=== PATIENT | female | born 1975 | race Caucasian/White ===

== ENCOUNTER 2020-08-23 11:16 | Outpatient (REF) | payer OTHER, SELFPAY ==
[2020-08-23 14:01] LABS: MANUAL DIFF FLAG NO
[2020-08-23 14:22] LABS: Basophils Absolute Auto 0.1 X10*3/uL (0.0-0.2); Basophils Percent Auto 0.9 % (0-2); Eosinophils Absolute Auto 0.2 X10*3/uL (0.0-0.4); Eosinophils Percent Auto 3.6 % (0-4); Hematocrit 40.5 % (37-47); Hemoglobin 13.5 g/dl (12.0-16.0); Imm Gran Abs Auto 0.01 X10*3/uL (0.00-0.03); Imm Gran Pct Auto 0.2 % (0.0-0.4); Lymphocytes Absolute Auto 3.1 X10*3/uL (1.2-4.9); Lymphocytes Percent Auto 49.3 % (20-40); Mean Corpuscular HGB Conc 33.3 g/dl (31.0-35.0); Mean Platelet Volume 9.4 fL (9.4-12.3); Monocytes Absolute Auto 0.4 X10*3/uL (0.1-1.2); Monocytes Percent Auto 6.8 % (2-11); Neutrophils Absolute Auto 2.5 X10*3/uL (2.0-8.3); Neutrophils Percent Auto 39.2 % (45-73); Platelet Count 280 X10*3/uL (160-400); Red Cell Distribution Width 13.2 % (11.0-16.0); White Blood Count 6.3 X10*3/uL (4.8-10.8)
[2020-08-23 16:11] LABS: Alanine Aminotransferase 11 U/L (0-31); Albumin Level 4.5 g/dL (3.5-5.0); Alkaline Phosphatase 76 U/L (39-117); Anion Gap 12 (12-20); Aspartate Amino Transferase 19 U/L (5-31); Bilirubin Total 0.4 mg/dL (0.0-1.0); Blood Urea Nitrogen 10 mg/dL (9-16); Carbon Dioxide 28 mmol/L (22-29); Chloride 103 mmol/L (96-108); Cholesterol 177 mg/dL; Estimated Glomerular Filt Rate > 60; Glucose Fasting 84 mg/dL (60-99); HDL Cholesterol 62 mg/dL; Iron 112 mcg/dL (30-160); LDL Cholesterol Calculated 105 mg/dl; Percent Iron Saturation 49 % (15-50); Potassium 4.3 mmol/L (3.3-5.1); Sodium 139 mmol/L (135-145); Total Iron Binding Capacity 227 mcg/dL (228-428); Total Protein 7.2 g/dL (6.5-8.0); Triglycerides 50 mg/dL; Unsaturated Iron Binding 115 ug/dL
[2020-08-23 16:33] LABS: Ferritin 85 ng/mL (10-250); Thyroid Stimulating Hormone 0.64 uIU/mL (0.32-4.0); Vitamin D 25-OH Total 38.9 ng/mL (>30)
== END 2020-08-23 11:17 | disposition home or self-care (01) ==
LOC: HO.MANLDS 11:16
PROVIDERS: PCP Internal Medicine; Visit Provider Internal Medicine
DX: Z00.00 Encounter for general adult medical examination without abnormal findings (principal)
CPT/HCPCS: 36415; 80053; 80061; 82306; 82728; 83540; 84443; 85025

== ENCOUNTER 2022-01-30 10:00 | Outpatient (RCR) | payer OTHER, SELFPAY ==
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
--- NOTE | 2021-11-21 11:10 | PM.PSYDC ---
DS: Providers Provider Primary care physician: Angel Hernandez MD DS: Diagnosis Discharge Diagnosis (1) Chronic post-traumatic stress disorder (PTSD): Status: Acute (2) Generalized anxiety disorder: Status: Acute (3) Major depressive disorder, recurrent severe without psychotic features: Status: Acute DS: Summary Time Spent with Patient Time attestation: Total time spent providing and/or coordinating discharge services: Discharge Plan Discharge Attending provider: En Choi Primary Care Provider: Angel Hernandez Referrals: Angel Hernandez MD [Primary Care Provider] - 1 Week
--- NOTE | 2022-01-07 21:56 | HO.TMSDAILY2 ---
TMS Daily Progress Note Daily TMS Progress Note Date of Service: 01/03/22 Week #: 1 Treatment #(07-29): 1 PHQ-9 Pre-Treatment (07-26): 20 PHQ-9 Most Recent (07-26): 20 Reviewed: TMS Mapping/Re-mapping completed Verification: I have reviewed the TMS Blueprint Trimmer Note and agree with the contents. The patient remains a candidate to continue TMS treatment per protocol. Assessment and Plan (1) Major depressive disorder, recurrent severe without psychotic features: Status: Acute (2) Generalized anxiety disorder: Status: Acute (3) Chronic post-traumatic stress disorder (PTSD): Status: Acute Plan mapping completed in spite of klonapin 2 tid
--- NOTE | 2022-01-07 21:59 | HO.TMSDAILY2 ---
TMS Daily Progress Note Daily TMS Progress Note Date of Service: 01/04/22 Week #: 1 Treatment #(07-29): 1 PHQ-9 Pre-Treatment (07-26): 20 PHQ-9 Most Recent (07-26): 20 Reviewed: TMS Tech Note Reviewed Verification: I have reviewed the TMS Behavioral Sciences Department Chair Note and agree with the contents. The patient remains a candidate to continue TMS treatment per protocol.
--- NOTE | 2022-01-07 22:01 | HO.TMSDAILY2 ---
TMS Daily Progress Note Daily TMS Progress Note Date of Service: 01/07/22 Week #: 1 Treatment #(07-29): 3 PHQ-9 Pre-Treatment (07-26): 20 PHQ-9 Most Recent (07-26): 20 Reviewed: TMS Tech Note Reviewed Verification: I have reviewed the TMS Communications Department Chairperson Note and agree with the contents. The patient remains a candidate to continue TMS treatment per protocol. Assessment and Plan (1) Major depressive disorder, recurrent severe without psychotic features: Status: Acute (2) Generalized anxiety disorder: Status: Acute (3) Chronic post-traumatic stress disorder (PTSD): Status: Acute Plan significant anxiety depressive sx denies active si
--- NOTE | 2022-01-08 21:42 | P.PNPS_ITS ---
TMS Daily Progress Note Daily TMS Progress Note Date of Service: 01/08/22 Week #: 1 Treatment #(07-29): 4 PHQ-9 Pre-Treatment (07-26): 20 PHQ-9 Most Recent (07-26): 20 Reviewed: TMS Tech Note Reviewed Verification: I have reviewed the TMS General Operations Manager Note and agree with the contents. The patient remains a candidate to continue TMS treatment per protocol.
--- NOTE | 2022-01-09 08:21 | HO.TMSDAILY2 ---
TMS Daily Progress Note Daily TMS Progress Note Date of Service: 01/09/22 Week #: 1 Treatment #(07-29): 5 PHQ-9 Pre-Treatment (07-26): 20 PHQ-9 Most Recent (07-26): 20 Reviewed: TMS Tech Note Reviewed Verification: I have reviewed the TMS Family Services Worker Note and agree with the contents. The patient remains a candidate to continue TMS treatment per protocol.
--- NOTE | 2022-01-10 22:52 | P.PNPS_ITS ---
TMS Daily Progress Note Daily TMS Progress Note Date of Service: 01/10/22 Week #: 2 Treatment #(07-29): 6 PHQ-9 Pre-Treatment (07-26): 20 PHQ-9 Most Recent (07-26): 20 Reviewed: TMS Tech Note Reviewed Verification: I have reviewed the TMS Sheet Manufacturing Supervisor Note and agree with the contents. The patient remains a candidate to continue TMS treatment per protocol.
--- NOTE | 2022-01-11 18:53 | P.PNPS_ITS ---
TMS Daily Progress Note Daily TMS Progress Note Date of Service: 01/11/22 Week #: 2 Treatment #(07-29): 7 PHQ-9 Pre-Treatment (07-26): 20 PHQ-9 Most Recent (07-26): 20 Reviewed: TMS Tech Note Reviewed Verification: I have reviewed the TMS Logistics Center Manager Note and agree with the contents. The patient remains a candidate to continue TMS treatment per protocol. Assessment and Plan (1) Major depressive disorder, recurrent severe without psychotic features: Status: Acute (2) Generalized anxiety disorder: Status: Acute (3) Chronic post-traumatic stress disorder (PTSD): Status: Acute Plan significant anxiety depressive sx denies active si monitor patient's response to treatment recently was involved and a Section 35 for family member this did cause significant anxiety
--- NOTE | 2022-01-14 21:51 | HO.TMSDAILY2 ---
TMS Daily Progress Note Daily TMS Progress Note Date of Service: 01/14/22 Week #: 2 Treatment #(07-29): 8 PHQ-9 Pre-Treatment (07-26): 20 PHQ-9 Most Recent (07-26): 20 Reviewed: TMS Tech Note Reviewed Verification: I have reviewed the TMS Rotary Slicing Machine Operator Note and agree with the contents. The patient remains a candidate to continue TMS treatment per protocol. Assessment and Plan (1) Major depressive disorder, recurrent severe without psychotic features: Status: Acute (2) Generalized anxiety disorder: Status: Acute (3) Chronic post-traumatic stress disorder (PTSD): Status: Acute Plan Continue treatment plan
--- NOTE | 2022-01-15 23:07 | HO.TMSDAILY2 ---
TMS Daily Progress Note Daily TMS Progress Note Date of Service: 01/15/22 Week #: 2 Treatment #(07-29): 9 PHQ-9 Pre-Treatment (07-26): 20 PHQ-9 Most Recent (07-26): 20 Reviewed: TMS Tech Note Reviewed Verification: I have reviewed the TMS Assistant Passenger Locomotive Engineer Note and agree with the contents. The patient remains a candidate to continue TMS treatment per protocol.
--- NOTE | 2022-01-16 22:22 | P.PNPS_ITS ---
TMS Daily Progress Note Daily TMS Progress Note Date of Service: 01/16/22 Week #: 2 Treatment #(07-29): 10 PHQ-9 Pre-Treatment (07-26): 20 PHQ-9 Most Recent (07-26): 20 Reviewed: TMS Tech Note Reviewed Verification: I have reviewed the TMS Spout Liner Helper Note and agree with the contents. The patient remains a candidate to continue TMS treatment per protocol.
--- NOTE | 2022-01-17 22:31 | HO.TMSDAILY2 ---
TMS Daily Progress Note Daily TMS Progress Note Date of Service: 01/17/22 Week #: 3 Treatment #(07-29): 11 PHQ-9 Pre-Treatment (07-26): 20 PHQ-9 Most Recent (07-26): 20 Reviewed: TMS Tech Note Reviewed Verification: I have reviewed the TMS Sales And Marketing Coordinator Note and agree with the contents. The patient remains a candidate to continue TMS treatment per protocol.
--- NOTE | 2022-01-18 21:38 | P.PNPS_ITS ---
TMS Daily Progress Note Daily TMS Progress Note Date of Service: 01/18/22 Week #: 3 Treatment #(07-29): 12 PHQ-9 Pre-Treatment (07-26): 20 PHQ-9 Most Recent (07-26): 20 Reviewed: TMS Tech Note Reviewed Verification: I have reviewed the TMS Hotel Services Sales Representative Note and agree with the contents. The patient remains a candidate to continue TMS treatment per protocol.
--- NOTE | 2022-01-22 21:43 | HO.TMSDAILY2 ---
TMS Daily Progress Note Daily TMS Progress Note Date of Service: 01/22/22 Week #: 3 Treatment #(07-29): 13 PHQ-9 Pre-Treatment (07-26): 20 PHQ-9 Most Recent (07-26): 20 Reviewed: TMS Tech Note Reviewed Verification: I have reviewed the TMS Certified Public Accountant Note and agree with the contents. The patient remains a candidate to continue TMS treatment per protocol. Assessment and Plan (1) Major depressive disorder, recurrent severe without psychotic features: Status: Acute (2) Generalized anxiety disorder: Status: Acute Plan pt has been under stress with family
--- NOTE | 2022-01-25 22:18 | HO.TMSDAILY2 ---
TMS Daily Progress Note Daily TMS Progress Note Date of Service: 01/23/22 Week #: 3 Treatment #(07-29): 14 PHQ-9 Pre-Treatment (07-26): 20 PHQ-9 Most Recent (07-26): 20 Reviewed: TMS Tech Note Reviewed Verification: I have reviewed the TMS Operations Vice President Note and agree with the contents. The patient remains a candidate to continue TMS treatment per protocol.
--- NOTE | 2022-01-25 22:20 | HO.TMSDAILY2 ---
TMS Daily Progress Note Daily TMS Progress Note Date of Service: 01/24/22 Week #: 3 Treatment #(07-29): 15 PHQ-9 Pre-Treatment (07-26): 20 PHQ-9 Most Recent (07-26): 20 Reviewed: TMS Tech Note Reviewed Verification: I have reviewed the TMS Archeology Professor Note and agree with the contents. The patient remains a candidate to continue TMS treatment per protocol.
--- NOTE | 2022-01-25 22:21 | P.PNPS_ITS ---
TMS Daily Progress Note Daily TMS Progress Note Date of Service: 01/25/22 Week #: 4 Treatment #(07-29): 16 PHQ-9 Pre-Treatment (07-26): 20 PHQ-9 Most Recent (07-26): 20 Reviewed: TMS Tech Note Reviewed Verification: I have reviewed the TMS Street Car Inspector Note and agree with the contents. The patient remains a candidate to continue TMS treatment per protocol. Assessment and Plan (1) Major depressive disorder, recurrent severe without psychotic features: Status: Acute (2) Generalized anxiety disorder: Status: Acute (3) Chronic post-traumatic stress disorder (PTSD): Status: Acute Plan continue treatment plan
--- NOTE | 2022-01-28 22:42 | P.PNPS_ITS ---
TMS Daily Progress Note Daily TMS Progress Note Date of Service: 01/29/22 Week #: 4 Treatment #(07-29): 17 PHQ-9 Pre-Treatment (07-26): 20 PHQ-9 Most Recent (07-26): 20 Reviewed: TMS Tech Note Reviewed Verification: I have reviewed the TMS Bulk Materials Handling Plant Operator Note and agree with the contents. The patient remains a candidate to continue TMS treatment per protocol. Assessment and Plan (1) Major depressive disorder, recurrent severe without psychotic features: Status: Acute (2) Generalized anxiety disorder: Status: Acute (3) Chronic post-traumatic stress disorder (PTSD): Status: Acute Plan has inc anxiety ? situational monitor
--- NOTE | 2022-01-29 21:57 | P.PNPS_ITS ---
TMS Daily Progress Note Daily TMS Progress Note Date of Service: 01/29/22 Week #: 4 Treatment #(07-29): 18 PHQ-9 Pre-Treatment (07-26): 20 PHQ-9 Most Recent (07-26): 20 Reviewed: TMS Tech Note Reviewed Verification: I have reviewed the TMS Collection Officer Note and agree with the contents. The patient remains a candidate to continue TMS treatment per protocol. Assessment and Plan (1) Major depressive disorder, recurrent severe without psychotic features: Status: Acute (2) Generalized anxiety disorder: Status: Acute (3) Chronic post-traumatic stress disorder (PTSD): Status: Acute Plan has inc anxiety ? may need alt tx will evaluate
--- NOTE | 2022-01-30 08:17 | P.PNPS_ITS ---
TMS Daily Progress Note Daily TMS Progress Note Date of Service: 02/20/22 Week #: 4 Treatment #(07-29): 18 PHQ-9 Pre-Treatment (07-26): 20 PHQ-9 Most Recent (07-26): 20 Reviewed: TMS Tech Note Reviewed Verification: I have reviewed the TMS Outbound Sales Professional Note and agree with the contents. The patient remains a candidate to continue TMS treatment per protocol. Assessment and Plan (1) Major depressive disorder, recurrent severe without psychotic features: Status: Acute (2) Generalized anxiety disorder: Status: Acute (3) Chronic post-traumatic stress disorder (PTSD): Status: Acute Plan Pt seen individually has been increasingly anxious has felt overwhlmed increasingly depressed having difficulty with her who is asking for divorce pt has been increasingly erratic denies drinking or active si we discussed referral to php and stop tms
== END 2022-01-31 14:13 | disposition other institution (70) ==
LOC: HO.PTMS 10:00
PROVIDERS: PCP Internal Medicine; Visit Provider Psychiatry & Neurology Psychiatry
DX: F33.2 Major depressive disorder, recurrent severe without psychotic features (principal); F43.12 Post-traumatic stress disorder, chronic; F41.1 Generalized anxiety disorder
CPT/HCPCS: 90867; 90868; 99203

== ENCOUNTER 2022-02-12 10:30 | Outpatient (RCR) | payer OTHER, SELFPAY ==
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
[2022-02-07 11:31] VITALS: BP 120/72; PULSE 68; RESP 16; TEMP 36.7
--- NOTE | 2022-02-07 14:06 | PC.NURSE ---
case opened in tx team
[2022-02-07 14:41] LABS: Amphetamine Screen Urine Not Detected (Not Detect); Barbiturates, Urine Not Detected (Not Detect); Benzodiazepines Screen Urine POSITIVE (Not Detect); Cannabinoid Screen Urine POSITIVE (Not Detect); Cocaine Screen Urine Not Detected (Not Detect); Fentanyl, urine Not Detected (Not Detect); Opiate Screen Urine Not Detected (Not Detect); Phencyclidine Screen Urine Not Detected (Not Detect)
[2022-02-07 17:36] VITALS: BMI 23.3
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
== END 2022-02-12 23:59 | disposition admitted as inpatient to this hospital (09) ==
LOC: HO.PHPA 10:30
PROVIDERS: Nurse Practitioner Psychiatric/Mental Health; Visit Provider Psychiatry & Neurology Psychiatry
DX: F33.2 Major depressive disorder, recurrent severe without psychotic features (principal); F41.1 Generalized anxiety disorder; F43.12 Post-traumatic stress disorder, chronic; F10.20 Alcohol dependence, uncomplicated; Z79.899 Other long term (current) drug therapy
CPT/HCPCS: 80307; 90791; 90853

== ENCOUNTER 2022-02-12 17:31 | Inpatient (IN) | payer OTHER, SELFPAY ==
--- NOTE | 2022-02-12 | ECG_ITS ---
Test Reason : OD Blood Pressure : / mmHG Vent. Rate : 066 BPM Atrial Rate : 066 BPM P-R Int : 190 ms QRS Dur : 082 ms QT Int : 430 ms P-R-T Axes : 029 056 042 degrees QTc Int : 450 ms Normal sinus rhythm Normal ECG No previous ECGs available Referred By: Bishop Marshall Electronically Signed By:BRIAN BRANDON
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
--- NOTE | 2022-02-12 17:50 | PC.NURSE ---
Spoke to Jennifer from Poison Control she suggested doing an EKG, run labs for acetaminophen, salicylate, lytes, LFTs, administering narcan, admit and monitor in bed and observe for serotonin syndrome. MD godoy.
[2022-02-12] MEDS: Naloxone HCl Nasal 4 MG SPRAY NOSTRILALT (18:13)
[2022-02-12] MEDS: iohexoL 350 MG/ML 100 ML INFUS..BTL IV (18:15)
[2022-02-12 18:20] LABS: MANUAL DIFF FLAG NO
[2022-02-12 18:23] LABS: Basophils Percent Auto 0.7 % (0-2); Eosinophils Absolute Auto 0.2 X10*3/uL (0.0-0.4); Eosinophils Percent Auto 3.2 % (0-4); Hematocrit 31.3 % (37.0-47.0); Hemoglobin 10.5 g/dl (12.0-16.0); Imm Gran Abs Auto 0.02 X10*3/uL (0.00-0.03); Imm Gran Pct Auto 0.3 % (0.0-0.4); Lymphocytes Absolute Auto 2.2 X10*3/uL (1.2-4.9); Lymphocytes Percent Auto 38.1 % (20-40); Mean Corpuscular HGB Conc 33.5 g/dl (31.0-35.0); Mean Corpuscular Hemoglobin 30.4 pg (27.0-33.0); Mean Corpuscular Volume 90.7 fL (80.0-98.0); Monocytes Absolute Auto 0.4 X10*3/uL (0.1-1.2); Monocytes Percent Auto 6.1 % (2-11); Neutrophils Percent Auto 51.6 % (45-73); Platelet Count 218 X10*3/uL (160-400); Red Blood Count 3.45 X10*6/uL (4.20-5.50); Red Cell Distribution Width 13.9 % (11.0-16.0); White Blood Count 5.9 X10*3/uL (4.8-10.8)
[2022-02-12 18:35] LABS: Phosphorus 2.5 mg/dL (2.7-4.5)
[2022-02-12 18:42] LABS: Acetaminophen LAB < 1 mcg/mL (<30); Salicylate < 5.0 mg/dL (15-30)
[2022-02-12 18:46] LABS: Alanine Aminotransferase 6 U/L (0-31); Albumin Level 3.3 g/dL (3.5-5.0); Alkaline Phosphatase 49 U/L (39-117); Anion Gap 11 (12-20); Aspartate Amino Transferase 12 U/L (5-31); Bilirubin Total < 0.2 mg/dL (0.0-1.0); Blood Urea Nitrogen 12 mg/dL (9-16); Carbon Dioxide 25 mmol/L (22-29); Chloride 102 mmol/L (96-108); Estimated Glomerular Filt Rate > 60; Ethanol 179 mg/dL; Glucose Random 191 mg/dL (60-115); Magnesium 1.8 mg/dL (1.6-2.6); Potassium 3.6 mmol/L (3.3-5.1); Sodium 134 mmol/L (135-145); Total Protein 5.1 g/dL (6.5-8.0)
[2022-02-12 19:12] VITALS: BMI 23.0
[2022-02-12 19:21] VITALS: BP 116/64; PULSE 86; RESP 14; TEMP 36.8; O2SAT 98; BMI 23.0
[2022-02-12 19:57] LABS: Appearance Urine Clear; Color Urine Yellow; Glucose Urine UA 100 mg/dL (Negative); Leukocyte Esterase Urine Negative (Negative); Nitrite Urine Negative (Negative); PH 6.5 (5.0-8.0); Urine Blood Negative (Negative); Urine Ketones Negative (Negative); Urine Protein Negative (Neg-Trace)
[2022-02-12 20:11] LABS: Amphetamine Screen Urine Not Detected (Not Detect); Barbiturates, Urine Not Detected (Not Detect); Benzodiazepines Screen Urine POSITIVE (Not Detect); Cannabinoid Screen Urine POSITIVE (Not Detect); Cocaine Screen Urine Not Detected (Not Detect); Fentanyl, urine Not Detected (Not Detect); Opiate Screen Urine Not Detected (Not Detect); Phencyclidine Screen Urine Not Detected (Not Detect)
--- NOTE | 2022-02-12 21:39 | PC.NURSE ---
I spoke with Poison COnt[facility] at this time who states pt should have repeat EKG now and at 0030.
[2022-02-12] MEDS: 0.9 % Sodium Chloride 1,000 ML 999 ML IV (23:20)
[2022-02-12 23:30] VITALS: PULSE 57; RESP 16; O2SAT 97
[2022-02-12 23:41] LABS: COVID-19 Test Negative (Negative)
[2022-02-13] VITALS (7 sets, daily range): BP systolic 78–127; BP diastolic 34–75; PULSE 53–58; RESP 15–16; TEMP 36.5; O2SAT 94–97
[2022-02-13 01:38] LABS: Acetaminophen LAB < 1 mcg/mL (<30); Anion Gap 16 (12-20); Blood Urea Nitrogen 8 mg/dL (9-16); Calcium 8.6 mg/dL (8.4-10.2); Carbon Dioxide 23 mmol/L (22-29); Chloride 104 mmol/L (96-108); Creatinine Clr Calc Pharmacy 74.8; Estimated Glomerular Filt Rate > 60; Glucose Random 154 mg/dL (60-115); Potassium 4.2 mmol/L (3.3-5.1); Salicylate < 5.0 mg/dL (15-30); Sodium 139 mmol/L (135-145)
--- NOTE | 2022-02-13 01:56 | MHC.CARE ---
CARE team aware of pt in ED s/p suicide attempt via medication overdose. Pt is not medically cleared and unable to be evaluated at this time. CARE team will continue to follow case.
[2022-02-13] MEDS: 0.9 % Sodium Chloride 1,000 ML 999 ML IV (03:01)
--- NOTE | 2022-02-13 04:34 | PC.NURSE ---
I assumed nursing care of Nimisha at 1900. Since that time Nimihsa has been resting in bed - she sleeps soundly, wakes to verbal stimuli consistently. She makes eye contact with staff, is calm and cooperative and often is even able to joke around with staff. She admits to SI, states she has Hx of suicide attempt x 1 but states this was supposed to be it. it was supposed to work this time. i got a bad phone call. and that's just it. SPeech is slurred, obvious alcohol on breath. She denies HI. She admits to continued SI with a plan. [facility] staff aware of pt's presence and are awaiting med clearance. She admits to taking numerous tablets of Clonidine and Ativan. There were Fluoxetine found on scene but she 'doesn't think she took any of these. She also admits to drinking 6 nips of fireball as well. Respirations are spontaneous and non-labored, RR WNL, room air sat's WNL, no cyanosis, she speaks in full sentences. Pt has IV access and IVF's are infusing. She has had a total of 2L of NS and her BP's have been as low as 76/40 and are mostly in the upper 80's/60's. Provider is aware of this, requests IVF's continue. Pt continue to await medical clearance. Will continue to monitor, 1:[address]
--- NOTE | 2022-02-13 08:13 | ECG_ITS ---
Test Reason : overdose/repeat ekg Blood Pressure : / mmHG Vent. Rate : 063 BPM Atrial Rate : 063 BPM P-R Int : 186 ms QRS Dur : 074 ms QT Int : 416 ms P-R-T Axes : 027 027 044 degrees QTc Int : 425 ms Normal sinus rhythm Low voltage QRS Borderline ECG When compared with ECG of 12-FEB-2022 22:52, No significant change was found Referred By: Zee Martin Electronically Signed By:BRIAN BRANDON
--- NOTE | 2022-02-13 08:30 | PC.NURSE ---
Posiion control called and updated on pt status at this time. PC recommends repeat ekg and chemistry, Regina NEVAREZ aware, new orders obtained.
[2022-02-13 08:58] LABS: Alanine Aminotransferase 7 U/L (0-31); Albumin Level 3.2 g/dL (3.5-5.0); Alkaline Phosphatase 55 U/L (39-117); Anion Gap 9 (12-20); Aspartate Amino Transferase 13 U/L (5-31); Bilirubin Total 0.2 mg/dL (0.0-1.0); Blood Urea Nitrogen 6 mg/dL (9-16); Calcium 7.5 mg/dL (8.4-10.2); Carbon Dioxide 24 mmol/L (22-29); Chloride 112 mmol/L (96-108); Creatinine Clr Calc Pharmacy 83.6; Estimated Glomerular Filt Rate > 60; Glucose Random 112 mg/dL (60-115); Potassium 4.3 mmol/L (3.3-5.1); Sodium 141 mmol/L (135-145)
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
--- NOTE | 2022-02-13 11:00 | PC.NURSE ---
CARE team at bedside
--- NOTE | 2022-02-13 12:35 | PC.NURSE ---
Report to m3
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
[2022-02-14 06:00] VITALS: BP 110/58; PULSE 70; TEMP 36.6; O2SAT 96
[2022-02-14 07:00] VITALS: BMI 23.4
[2022-02-14] MEDS: Multivitamin TABLET 1 TAB PO (08:41)
[2022-02-14] MEDS: Thiamine HCL 100 MG TABLET PO (08:41)
[2022-02-14 09:03] LABS: Estimated Average Glucose 85 mg/dL; Hemoglobin A1c % 4.6 %
[2022-02-14 09:26] LABS: Alanine Aminotransferase 10 U/L (0-31); Albumin Level 3.5 g/dL (3.5-5.0); Alkaline Phosphatase 66 U/L (39-117); Anion Gap 11 (12-20); Aspartate Amino Transferase 15 U/L (5-31); Bilirubin Total 0.3 mg/dL (0.0-1.0); Blood Urea Nitrogen 7 mg/dL (9-16); Calcium 8.4 mg/dL (8.4-10.2); Carbon Dioxide 26 mmol/L (22-29); Chloride 109 mmol/L (96-108); Cholesterol 126 mg/dL; Creatinine Clr Calc Pharmacy 75.8; Estimated Glomerular Filt Rate > 60; Glucose Fasting 96 mg/dL (60-99); HDL Cholesterol 45 mg/dL; LDL Cholesterol Calculated 68 mg/dl; Magnesium 1.7 mg/dL (1.6-2.6); Sodium 142 mmol/L (135-145); Total Protein 5.8 g/dL (6.5-8.0); Triglycerides 65 mg/dL
[2022-02-14 09:45] LABS: Free T4 (Free Thyroxine) 0.87 ng/dL (0.71-1.85); Thyroid Stimulating Hormone 2.59 uIU/mL (0.32-4.0)
[2022-02-14 10:02] LABS: Folate 9.8 ng/mL (> or = 4.0); Vitamin B12 622 pg/mL (200-900)
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
[2022-02-14] MEDS: clonazePAM 0.5 MG TABLET 1.5 MG PO ×2 (14:29→19:56)
[2022-02-14 18:00] VITALS: BP 120/78; PULSE 82; RESP 16; TEMP 36.6; O2SAT 99
[2022-02-14] MEDS: clonazePAM 0.5 MG TABLET PO (21:39)
[2022-02-15 06:00] VITALS: BP 114/64; PULSE 67; TEMP 36.2; O2SAT 97
[2022-02-15] MEDS: Multivitamin TABLET 1 TAB PO (09:21)
[2022-02-15] MEDS: Thiamine HCL 100 MG TABLET PO (09:21)
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
[2022-02-15 16:35] VITALS: BP 143/66; PULSE 71; TEMP 36.3
[2022-02-15] MEDS: clonazePAM 0.5 MG TABLET 1.5 MG PO (16:43)
[2022-02-15] MEDS: clonazePAM 1 MG TABLET 3 MG PO (20:08)
[2022-02-16 06:00] VITALS: BP 108/70; PULSE 68; RESP 16; TEMP 36.3; O2SAT 98
[2022-02-16] MEDS: Multivitamin TABLET 1 TAB PO (09:03)
[2022-02-16] MEDS: Thiamine HCL 100 MG TABLET PO (09:03)
--- NOTE | 2022-02-16 10:42 | HO.PSYCHPN ---
Subjective Subjective Date of Service: 02/16/22 Reason For Visit: s/p Clonidine OD; PTSD; MDD; Alcohol Use Disorder Interim History: pt agrees to start trial of Lamictal; she still would like to dc this weekend but accepts need for aftercare to be set up prior to dischcarge which wont happen unitl next weekday. Pt is hesitant to lower bedtime dose of Clonazepam at this point; she did not have restful sleep last night and agrees to try trazodone. says mood remains better; no SI Mental Status Exam Mental Status Exam Narrative: Pt is alert and oriented; behavior is cooperative, friendly, calm; dressed in casual attire with combed hair, adequate hygiene; mood is described as good and affect congruent, brigthter, calm; eye contact appropriate; Speech is normal rate, volume and prosody and not pressured; no psychomotor agitation/retardation present; thought process is organized and goal directed; Thought content is on tx, discharge... otherwise pertinent to relevant topics and without any delusional content, paranoid ideations or grandiosity; denies any SI/HI. There is no evidence of perceptual disturbance. Patients insight and judgment are fair. Diagnostics Vital Signs (24Hr): Vital Signs - 24 hr 02/15/22 16:35 02/16/22 06:00 Temperature 97.3 F 97.3 F Pulse Rate 71 68 Respiratory Rate 16 Blood Pressure 143/66 H 108/70 Pulse Oximetry 98 Oxygen Delivery Method Room Air BMI result Body Mass Index 23.4 Labs Results: 02/12/22 18:17 02/14/22 08:26 Imaging Radiology Impressions: ITS Impressions Cervical Spine CT 02/12/22 18:13 IMPRESSION: No acute intracranial process seen. There is no acute fracture or dislocation or subluxation cervical spine. Degenerative disc changes and facet joint arthropathy as described above. There is no acute process seen in the chest, abdomen pelvis. There is a distended urinary bladder extending almost to the umbilicus of unknown etiology. Likely small cyst right hepatic lobe There is dependent bibasilar compressive atelectasis. Head CT 02/12/22 18:13 IMPRESSION: No acute intracranial process seen. There is no acute fracture or dislocation or subluxation cervical spine. Degenerative disc changes and facet joint arthropathy as described above. There is no acute process seen in the chest, abdomen pelvis. There is a distended urinary bladder extending almost to the umbilicus of unknown etiology. Likely small cyst right hepatic lobe There is dependent bibasilar compressive atelectasis. Abdomen/Pelvis CT 02/12/22 18:22 IMPRESSION: No acute intracranial process seen. There is no acute fracture or dislocation or subluxation cervical spine. Degenerative disc changes and facet joint arthropathy as described above. There is no acute process seen in the chest, abdomen pelvis. There is a distended urinary bladder extending almost to the umbilicus of unknown etiology. Likely small cyst right hepatic lobe There is dependent bibasilar compressive atelectasis. Chest CT 02/12/22 18:22 IMPRESSION: No acute intracranial process seen. There is no acute fracture or dislocation or subluxation cervical spine. Degenerative disc changes and facet joint arthropathy as described above. There is no acute process seen in the chest, abdomen pelvis. There is a distended urinary bladder extending almost to the umbilicus of unknown etiology. Likely small cyst right hepatic lobe There is dependent bibasilar compressive atelectasis. Medications Medications Current Medications Acetaminophen (Acetaminophen 325 Mg Tablet) 650 mg PO Q6H PRN PRN Reason: Headache/Pain Mild Scale (1-3) Al Hydroxide/Mg Hydroxide (Magnesium Hydrox/Alum Hydrox 30 Ml Oral.Susp) 30 ml PO Q6H PRN PRN Reason: Heartburn/Nausea Clonazepam (Clonazepam 1 Mg Tablet) 3 mg PO BEDTIME [facility] Last Admin: 02/15/22 20:08 Dose: 3 mg Clonazepam (Clonazepam 0.5 Mg Tablet) 1.5 mg PO DAILY PRN PRN Reason: anxiety Last Admin: 02/15/22 16:43 Dose: 1.5 mg Hydroxyzine HCl (Hydroxyzine Hcl 25 Mg Tablet) 25 mg PO Q6H PRN PRN Reason: Anxiety Magnesium Hydroxide (Milk Of Magnesia 30 Ml Oral.Susp) 30 ml PO DAILY PRN PRN Reason: Constipation Multivitamins/Vitamin C (Multivitamin Tablet) 1 tab PO DAILY [facility] Last Admin: 02/16/22 09:03 Dose: 1 tab Non-Formulary Medication (Non-Formulary Medication) 2 each PO DAILY@1600 [facility] Last Admin: 02/15/22 15:03 Dose: 2 each Thiamine HCl (Thiamine Hcl 100 Mg Tablet) 100 mg PO DAILY [facility] Last Admin: 02/16/22 09:03 Dose: 100 mg Trazodone HCl (Trazodone Hcl 50 Mg Tablet) 50 mg PO BEDTIME PRN PRN Reason: Insomnia Allergies Allergies Allergy/AdvReac Type Severity Reaction Status Date / Time topiramate [From TOPAMAX] Allergy Unknown SEVERE Verified 02/07/22 17:07 DEPRESSION Assessment & Plan Assessment & Plan (1) Major depressive disorder, recurrent severe without psychotic features: Status: Acute Code(s): F33.2 - Major depressive disorder, recurrent severe without psychotic features (2) Chronic post-traumatic stress disorder (PTSD): Status: Acute Code(s): F43.12 - Post-traumatic stress disorder, chronic Plan Patient is a 46-year-old woman with history of depression, anxiety, PTSD who presents for worsening depression and suicide attempt. Patient reports that she has been consistent with her medications however has still remained depressed. Chronic depression only partially treated by medication; seems to have some borderline traits; history of alcoholism but not sure to what degree. Complex PTSD and feelings of abandonment by her father color most of her perspective. Patient feels a renewed sense of hope and connection with her family based on the response to this attempt; she would like to discharge tomorrow, however Patient agrees she needs to augment her current medication regimen. 02/15 anxious, upset about admission but agrees it is important to stay for more medication management and post discharge set up. Agrees to trazodone; patient trying to get hold of outpatient provider to get med history (selling underwriter called and could not get a hold of). Discussed Lamictal, risks/side effects including but not limited to Zachary Patel's and patient would like to start on trial but wants to get outpatient provider input 1st. 02/16 Good mood, calm, appropriate with peers and staff. Would like to discharge kelsey but accepts to remain and agrees to start Lamictal. Patient maintains that mood in all SI remain resolved and that she will be fine discharging; she wants to engage with IOP and is open to either [facility] [place] or staying here at [place]. Switchboard Receptionist agrees the patient is likely at baseline. Plan: CV Q 15 minute checks Start Lamictal 25 mg daily Continue Cymbalta DR 120 mg daily ([facility] specific legal administrative [facility] [phone] (does not however need to be brandname) Continue clonidine clonazepam to 1.5 mg q1600 and 3mg qhs (which is what she takes at home) will discuss tapering further Will reach out to outpatient provider Maricel Woodall to get history of medications for augmenting current regimen I spent minutes with the patient and/or on the patient floor today, greater than?50% of which was spent counseling/coordinating care. Patient educated on: diagnosis and medication risk/benefits Informed Consent: understands Reason for contiued inpatient stay Substantial Risk for: stable for discharge
[2022-02-16] MEDS: lamoTRIgine 25 MG TABLET PO ×2 (11:49→20:14)
[2022-02-16] MEDS: clonazePAM 0.5 MG TABLET 1.5 MG PO (16:02)
[2022-02-16 16:14] VITALS: BP 140/90; PULSE 72; RESP 16; TEMP 36.1; O2SAT 99
[2022-02-16] MEDS: clonazePAM 1 MG TABLET 3 MG PO (20:14)
[2022-02-17] MEDS: Acetaminophen 325 MG TABLET 650 MG PO ×3 (03:31→23:07)
[2022-02-17 06:00] VITALS: BP 134/72; PULSE 84; RESP 16; TEMP 36.6; O2SAT 100
[2022-02-17] MEDS: Multivitamin TABLET 1 TAB PO (08:20)
[2022-02-17] MEDS: Thiamine HCL 100 MG TABLET PO (08:20)
[2022-02-17] MEDS: clonazePAM 0.5 MG TABLET 1.5 MG PO (15:49)
--- NOTE | 2022-02-17 16:45 | HO.PSYCHPN ---
Subjective Subjective Date of Service: 02/17/22 Reason For Visit: s/p Clonidine OD; PTSD; MDD; Alcohol Use Disorder Interim History: Patient reports good mood; continues to deny any SI at all. She said she slept really well last night and feels well rested. Had a good visit with family yesterday. Tolerating medications well. Patient is hopeful for discharge Friday. Mental Status Exam Mental Status Exam Narrative: Pt is alert and oriented; behavior is cooperative, friendly, calm; dressed in casual attire with combed hair, adequate hygiene; mood is described as good and affect congruent, brigthter, calm; eye contact appropriate; Speech is normal rate, volume and prosody and not pressured; no psychomotor agitation/retardation present; thought process is organized and goal directed; Thought content is on tx, discharge... otherwise pertinent to relevant topics and without any delusional content, paranoid ideations or grandiosity; denies any SI/HI. There is no evidence of perceptual disturbance. Patients insight and judgment are fair. Diagnostics Vital Signs (24Hr): Vital Signs - 24 hr 02/17/22 06:00 Temperature 97.9 F Pulse Rate 84 Respiratory Rate 16 Blood Pressure 134/72 Pulse Oximetry 100 Oxygen Delivery Method Room Air BMI result Body Mass Index 23.4 Labs Results: 02/12/22 18:17 02/14/22 08:26 Imaging Radiology Impressions: ITS Impressions Cervical Spine CT 02/12/22 18:13 IMPRESSION: No acute intracranial process seen. There is no acute fracture or dislocation or subluxation cervical spine. Degenerative disc changes and facet joint arthropathy as described above. There is no acute process seen in the chest, abdomen pelvis. There is a distended urinary bladder extending almost to the umbilicus of unknown etiology. Likely small cyst right hepatic lobe There is dependent bibasilar compressive atelectasis. Head CT 02/12/22 18:13 IMPRESSION: No acute intracranial process seen. There is no acute fracture or dislocation or subluxation cervical spine. Degenerative disc changes and facet joint arthropathy as described above. There is no acute process seen in the chest, abdomen pelvis. There is a distended urinary bladder extending almost to the umbilicus of unknown etiology. Likely small cyst right hepatic lobe There is dependent bibasilar compressive atelectasis. Abdomen/Pelvis CT 02/12/22 18:22 IMPRESSION: No acute intracranial process seen. There is no acute fracture or dislocation or subluxation cervical spine. Degenerative disc changes and facet joint arthropathy as described above. There is no acute process seen in the chest, abdomen pelvis. There is a distended urinary bladder extending almost to the umbilicus of unknown etiology. Likely small cyst right hepatic lobe There is dependent bibasilar compressive atelectasis. Chest CT 02/12/22 18:22 IMPRESSION: No acute intracranial process seen. There is no acute fracture or dislocation or subluxation cervical spine. Degenerative disc changes and facet joint arthropathy as described above. There is no acute process seen in the chest, abdomen pelvis. There is a distended urinary bladder extending almost to the umbilicus of unknown etiology. Likely small cyst right hepatic lobe There is dependent bibasilar compressive atelectasis. Medications Medications Current Medications Acetaminophen (Acetaminophen 325 Mg Tablet) 650 mg PO Q6H PRN PRN Reason: Headache/Pain Mild Scale (1-3) Last Admin: 02/17/22 15:51 Dose: 650 mg Al Hydroxide/Mg Hydroxide (Magnesium Hydrox/Alum Hydrox 30 Ml Oral.Susp) 30 ml PO Q6H PRN PRN Reason: Heartburn/Nausea Clonazepam (Clonazepam 1 Mg Tablet) 3 mg PO BEDTIME [facility] Last Admin: 02/16/22 20:14 Dose: 3 mg Clonazepam (Clonazepam 0.5 Mg Tablet) 1.5 mg PO DAILY PRN PRN Reason: anxiety Last Admin: 02/17/22 15:49 Dose: 1.5 mg Hydroxyzine HCl (Hydroxyzine Hcl 25 Mg Tablet) 25 mg PO Q6H PRN PRN Reason: Anxiety Lamotrigine (Lamotrigine 25 Mg Tablet) 25 mg PO BEDTIME [facility] Last Admin: 02/16/22 20:14 Dose: 25 mg Magnesium Hydroxide (Milk Of Magnesia 30 Ml Oral.Susp) 30 ml PO DAILY PRN PRN Reason: Constipation Multivitamins/Vitamin C (Multivitamin Tablet) 1 tab PO DAILY [facility] Last Admin: 02/17/22 08:20 Dose: 1 tab Non-Formulary Medication (Non-Formulary Medication) 2 each PO DAILY@1600 [facility] Last Admin: 02/16/22 15:40 Dose: 2 each Thiamine HCl (Thiamine Hcl 100 Mg Tablet) 100 mg PO DAILY [facility] Last Admin: 02/17/22 08:20 Dose: 100 mg Trazodone HCl (Trazodone Hcl 50 Mg Tablet) 50 mg PO BEDTIME PRN PRN Reason: Insomnia Allergies Allergies Allergy/AdvReac Type Severity Reaction Status Date / Time topiramate [From TOPAMAX] Allergy Unknown SEVERE Verified 02/07/22 17:07 DEPRESSION Assessment & Plan Assessment & Plan (1) Major depressive disorder, recurrent severe without psychotic features: Status: Acute Code(s): F33.2 - Major depressive disorder, recurrent severe without psychotic features (2) Chronic post-traumatic stress disorder (PTSD): Status: Acute Code(s): F43.12 - Post-traumatic stress disorder, chronic Plan Patient is a 46-year-old woman with history of depression, anxiety, PTSD who presents for worsening depression and suicide attempt. Patient reports that she has been consistent with her medications however has still remained depressed. Chronic depression only partially treated by medication; seems to have some borderline traits; history of alcoholism but not sure to what degree. Complex PTSD and feelings of abandonment by her father color most of her perspective. Patient feels a renewed sense of hope and connection with her family based on the response to this attempt; she would like to discharge tomorrow, however Patient agrees she needs to augment her current medication regimen. 02/15 anxious, upset about admission but agrees it is important to stay for more medication management and post discharge set up. Agrees to trazodone; patient trying to get hold of outpatient provider to get med history (rewriter called and could not get a hold of). Discussed Lamictal, risks/side effects including but not limited to Zachary Patel's and patient would like to start on trial but wants to get outpatient provider input 1st. 02/16 Good mood, calm, appropriate with peers and staff. Would like to discharge kelsey but accepts to remain and agrees to start Lamictal. Patient maintains that mood in all SI remain resolved and that she will be fine discharging; she wants to engage with [facility] and is open to either [facility] [place] or staying here at [place]. Hat Forming Machine Feeder agrees the patient is likely at baseline. 02/17 remains in good mood, depression and SI remain fully resolved; patient future oriented and wants to set up aftercare at an [facility]. Patient is hopeful continued stability and optimistic about staying sober. Patient is returning to her supportive family. She also has outpatient provider with whom she has a good rapport. Hat Forming Machine Feeder hopes that she will remain long enough to make sure that appointments and aftercare are established, however she is not in imminent risk for harm to self or others and her request for discharge will be honored Plan: CV Q 15 minute checks Continue Lamictal 25 mg daily Continue Cymbalta DR 120 mg daily (must be from specific gospel worker [facility]# [phone] (does not however need to be brandname) Continue clonidine clonazepam to 1.5 mg q1600 and 3mg qhs (which is what she takes at home) will discuss tapering further Will reach out to outpatient provider Maricel Woodall to get history of medications for augmenting current regimen I spent minutes with the patient and/or on the patient floor today, greater than?50% of which was spent counseling/coordinating care. Patient educated on: diagnosis and medication risk/benefits Informed Consent: understands Reason for contiued inpatient stay Substantial Risk for: stable for discharge
[2022-02-17 17:22] VITALS: BP 138/81; PULSE 71; RESP 16; TEMP 36.6; O2SAT 100
[2022-02-17] MEDS: lamoTRIgine 25 MG TABLET PO (20:29)
[2022-02-17] MEDS: clonazePAM 1 MG TABLET 3 MG PO (20:29)
[2022-02-18 06:00] VITALS: BP 110/59; PULSE 85; RESP 18; TEMP 36; O2SAT 98
[2022-02-18] MEDS: Thiamine HCL 100 MG TABLET PO (08:45)
[2022-02-18] MEDS: Multivitamin TABLET 1 TAB PO (08:45)
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
== END 2022-02-18 14:40 | disposition home or self-care (01) | DRG 751 ==
LOC: HO.ED 02-13 02:17 → HO.PM5 02-13 13:34
PROVIDERS: Clinical Nurse Specialist Psychiatric/Mental Health, Adult; Physician Assistant; Physician Assistant Medical; Admitting Provider Psychiatry & Neurology Psychiatry; Emergency Provider Internal Medicine; PCP Internal Medicine; Visit Provider Psychiatry & Neurology Psychiatry
DX: F33.2 Major depressive disorder, recurrent severe without psychotic features (principal); R45.851 Suicidal ideations; F41.1 Generalized anxiety disorder; F43.12 Post-traumatic stress disorder, chronic; Z20.822 Contact with and (suspected) exposure to COVID-19; Z88.8 Allergy status to other drugs, medicaments and biological substances; Z87.891 Personal history of nicotine dependence; Z79.899 Other long term (current) drug therapy; Z91.51 Personal history of suicidal behavior; F10.10 Alcohol abuse, uncomplicated
CPT/HCPCS: 36415; 70450; 71260; 72125; 74177; 80048; 80053; 80061; 80143; 80179; 80307; 81003; 82077; 82607; 82746; 83036; 83735; 84100; 84439; 84443; 85025; 87635; 93005; 96360; 96361; 99285; Q9967

== ENCOUNTER 2022-02-22 12:05 | Outpatient (REF) | payer OTHER, SELFPAY ==
[2022-02-22 12:56] LABS: MANUAL DIFF FLAG NO
[2022-02-22 13:02] LABS: Basophils Absolute Auto 0.1 X10*3/uL (0.0-0.2); Basophils Percent Auto 1.2 % (0-2); Eosinophils Absolute Auto 0.2 X10*3/uL (0.0-0.4); Eosinophils Percent Auto 3.6 % (0-4); Hematocrit 44.4 % (37.0-47.0); Hemoglobin 14.6 g/dl (12.0-16.0); Imm Gran Abs Auto 0.02 X10*3/uL (0.00-0.03); Imm Gran Pct Auto 0.3 % (0.0-0.4); Lymphocytes Absolute Auto 3.1 X10*3/uL (1.2-4.9); Lymphocytes Percent Auto 46.8 % (20-40); Mean Corpuscular HGB Conc 32.9 g/dl (31.0-35.0); Mean Corpuscular Volume 91.2 fL (80.0-98.0); Mean Platelet Volume 9.6 fL (9.4-12.3); Monocytes Absolute Auto 0.5 X10*3/uL (0.1-1.2); Monocytes Percent Auto 7.1 % (2-11); Neutrophils Absolute Auto 2.7 x10*3/uL (2.0-8.3); Platelet Count 301 X10*3/uL (160-400); Red Blood Count 4.87 X10*6/uL (4.20-5.50); Red Cell Distribution Width 14.5 % (11.0-16.0); White Blood Count 6.6 X10*3/uL (4.8-10.8)
[2022-02-22 13:59] LABS: Alanine Aminotransferase 11 U/L (0-31); Albumin Level 4.8 g/dL (3.5-5.0); Alkaline Phosphatase 76 U/L (39-117); Anion Gap 15 (12-20); Aspartate Amino Transferase 20 U/L (5-31); Bilirubin Total 0.5 mg/dL (0.0-1.0); Blood Urea Nitrogen 13 mg/dL (9-16); Calcium 9.8 mg/dL (8.4-10.2); Carbon Dioxide 29 mmol/L (22-29); Chloride 105 mmol/L (96-108); Cholesterol 172 mg/dL; Estimated Glomerular Filt Rate > 60; Glucose Random 78 mg/dL (60-115); HDL Cholesterol 60 mg/dL; LDL Cholesterol Calculated 102 mg/dl; Potassium 4.6 mmol/L (3.3-5.1); Sodium 144 mmol/L (135-145); Total Protein 7.8 g/dL (6.5-8.0); Triglycerides 52 mg/dL
[2022-02-22 14:23] LABS: Thyroid Stimulating Hormone 1.45 uIU/mL (0.32-4.0); Vitamin D 25-OH Total 40.4 ng/mL (>30)
[2022-02-22 14:24] LABS: Vitamin B12 832 pg/mL (200-900)
== END 2022-02-22 12:06 | disposition home or self-care (01) ==
LOC: HO.MANLDS 12:05
PROVIDERS: Visit Provider Internal Medicine
DX: Z00.00 Encounter for general adult medical examination without abnormal findings (principal)
CPT/HCPCS: 36415; 80053; 80061; 82306; 82607; 84443; 85025

== ENCOUNTER 2022-04-01 12:45 | Outpatient (RCR) | payer OTHER, SELFPAY ==
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
[2022-03-05 14:31] VITALS: BP 106/70; PULSE 80; TEMP 35.6
[2022-03-05 15:13] LABS: Barbiturates, Urine Not Detected (Not Detect); Benzodiazepines Screen Urine POSITIVE (Not Detect); Cannabinoid Screen Urine POSITIVE (Not Detect); Cocaine Screen Urine Not Detected (Not Detect); Fentanyl, urine Not Detected (Not Detect); Opiate Screen Urine Not Detected (Not Detect); Phencyclidine Screen Urine Not Detected (Not Detect)
[2022-03-05 15:18] LABS: Amphetamine Screen Urine Not Detected (Not Detect)
--- NOTE | 2022-03-07 16:48 | PC.NURSE ---
Case opened in treatment team.
--- NOTE | 2022-03-08 16:47 | PC.NURSE ---
I met with pt and we reviewed treatment plan, schedule, and aftercare options. Pt has a therapist and a med provider and reports a good relationship with them. We discussed other options for support as well, including [facility], [facility] groups, [facility], and [employer]. Pt was tearful sharing about conflict with and her perception of lack of support from him. Tentative end date was scheduled for 03/21/22. Pt reports feeling supported by groups, and we discussed importance of increased self nurturing and coping skills application.
--- NOTE | 2022-03-11 16:09 | P.PNPSP_ITS ---
Subjective Subjective Date of Service: 03/11/22 Reason For Visit: MDD,LIDA,PTSD Medical Problems Affecting Mental Status: No Interim History: Describes mood as ?sad. Tearful throughout interview. No SI, no safety concern. Reports Lamictal does not feel helpful yet regarding mood stabilization. Medication Compliance: Yes Side effects from medications: No Attending Groups: Yes Review of Systems Acute medical concerns: No Medical Review of Systems: unchanged Review of Systems Review of Systems Yes all other systems are reviewed and are negative Constitutional: Reports no additional constitutional complaints Mental Status Exam Mental Status Exam Narrative: NAD. Tearful throughout encounter. Patient Appearance: Well Grooomed and Appropriate Patient Orientation: Person, Place, Time and Situation Level of Consciousness: Awake and Appropriate Patient Behavior: Appropriate, Cooperative, Good Eye Contact and Crying Mood Description: Depressed Affect Description: Depressed Patient Cognition Impaired: No Ability to Follow Directions: Good Speech Pattern: Clear, Appropriate and Coherent Memory Description: Intact Hallucinations: None Delusions: Not Present Thought Process: Intact Thought Content: positive for Intact Depressive Symptoms: Increased Anxiety, Difficulty Sleeping, Crying Spells, Loss of Int. in Activity, Isolating-Friends/Family and Unhappiness Judgement: Fair Assessment & Plan Assessment & Plan (1) Major depressive disorder, recurrent severe without psychotic features: Status: Acute Code(s): F33.2 - Major depressive disorder, recurrent severe without psychotic features Assessment and Plan: Describes mood as ?sad . Describes conflict at home with spouse. Also feels unproductive, lack of purpose. 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 Tearful throughout interview. No SI, no safety concern. Reports Lamictal does not feel helpful yet regarding mood stabilization. We discussed current dose, patient has been titrating and is receiving 50 mg daily. After 1 week, will increase dose to 100 mg. Patient was in agreement with this plan. (2) Generalized anxiety disorder: Status: Acute Code(s): F41.1 - Generalized anxiety disorder (3) Chronic post-traumatic stress disorder (PTSD): Status: Acute Code(s): F43.12 - Post-traumatic stress disorder, chronic Plan 1. Continue with current [facility] plan of care. 2. Continue medications as currently prescribed by outpatient provider. 3. Follow-up as per protocol. Patient educated on: diagnosis, medication risk/benefits and therapeutic strategies Informed Consent: understands Reason for contiued partial hosp. stay Substantial Risk for: harm to self, inability to function, rapid decompensation and med/psych decompensation Certification I certify that partial hospital treatment is medically necessary due to the symptoms and problems resulting from the patient's mental illness and the failure to treat the patient at the partial hospital level of care would likely result in the patient requiring inpatient psychiatric care which could not be prevented at a less intensive level of care. I spent minutes with the patient and/or on the patient floor today, greater than?50% of which was spent counseling/coordinating care. Discharge Plan Discharge Attending provider: Ariel Patterson Medications: No Action clonazepam 0.5 mg Tablet 1.5 mg PO DAILY PRN (Reason: anxiety) Qty: 0 0RF clonazepam 1 mg Tablet 3 mg PO BEDTIME Qty: 0 0RF lamotrigine [Subvenite] 25 mg tablet 75 mg PO DAILY 30 Days Qty: 90 0RF Rx Instructions: take once complete 50mg for 2 weeks duloxetine 60 mg capsule,delayed release(DR/EC) 120 mg PO DAILY 30 Days Qty: 60 0RF Emgality Pen 120 mg/mL pen injector 120 mg subcut QMONTH Label Comments: Last does per patient the middle of January 2022. Stand Alone Forms: Patient Portal Discharge page
--- NOTE | 2022-03-11 16:39 | PC.NURSE ---
I met with pt and we reviewed treatment plan, schedule, and aftercare options. Pt has a therapist and a med provider and reports a good relationship with them. We discussed other options for support as well, including [facility], [facility] groups, [facility], and [employer]. Pt was tearful sharing about conflict with and her perception of lack of support from him. Tentative end date was scheduled for 03/21/22. Pt reports feeling supported by groups, and we discussed importance of increased self nurturing and coping skills application.
--- NOTE | 2022-03-14 14:54 | PC.NURSE ---
Patient c/o increased anxiety and reports recent increase in Lamictal. Spoke to Kathleen Buchanan NP who stated patient can decrease dose to 75 mg. Spoke to patient and patient is going to decrease the dose to 75 mg to see if this helps.
--- NOTE | 2022-03-18 14:31 | P.PNPSP_ITS ---
Subjective Subjective Date of Service: 03/18/22 Reason For Visit: MDD,LIDA,PTSD Medical Problems Affecting Mental Status: No Interim History: Reports had severe anxiety last week., much improved now. No SI, no safety concerns. Continues with depressed mood. Drank one nip alcohol on Friday. Dropped the dose of lamictal to 75mg last week. Medication Compliance: Intermittent Side effects from medications: No Attending Groups: Yes Review of Systems Acute medical concerns: No Medical Review of Systems: unchanged Review of Systems Review of Systems Yes all other systems are reviewed and are negative Constitutional: Reports no additional constitutional complaints Mental Status Exam Mental Status Exam Narrative: NAD. Patient Appearance: Well Grooomed and Appropriate Patient Orientation: Person, Place, Time and Situation Level of Consciousness: Appropriate Patient Behavior: Appropriate, Cooperative and Good Eye Contact Mood Description: Depressed Affect Description: Appropriate Patient Cognition Impaired: No Ability to Follow Directions: Good Speech Pattern: Clear, Appropriate and Coherent Memory Description: Intact Hallucinations: None Delusions: Not Present Thought Process: Intact Thought Content: positive for Intact Depressive Symptoms: Increased Anxiety, Crying Spells, Loss of Int. in Activity and Unhappiness Judgement: Fair Assessment & Plan Assessment & Plan (1) Major depressive disorder, recurrent severe without psychotic features: Status: Acute Code(s): F33.2 - Major depressive disorder, recurrent severe without psychotic features Assessment and Plan: Continues with dysphoric mood. No SI, no safety concerns. Believes increased anxiety last week was due to being premenstrual, and that she thinks she is in janice-menopause. Discussed perimenopause symptoms, treatments such as estrogen, black cohosh, etc. Patient advised to speak to her OBGYN regarding possible treatment options. She stated that she would do so. Education regarding lamotrigine provided. patient willing to resume dose of 100mg daily, which she had started approximately one week ago. 30-day script sent to pharmacy. (2) Generalized anxiety disorder: Status: Acute Code(s): F41.1 - Generalized anxiety disorder Assessment and Plan: Encouraged to utilize her prn klonopin when beginning to experience increased anxiety/panic. (3) Chronic post-traumatic stress disorder (PTSD): Status: Acute Code(s): F43.12 - Post-traumatic stress disorder, chronic (4) Alcohol use disorder, moderate, dependence: Status: Acute Code(s): F10.20 - Alcohol dependence, uncomplicated Assessment and Plan: Patient reports she purchased two nips of liquor on Friday. She drank one, and threw the other one away. She says she was experiencing anxiety, and did this to help lessen the anxiety. Discussion regarding alcohol and anxiety ensued. Education provided. Recommended patient consider finding women's 12-step support group. She stated she is considering this. Plan 1. continue with current [facility] plan of care. 2. Resume lamotrigine 100mg daily, 30-day script sent to pharmacy. 3. Continue with all other medications as currently prescribed by outpatient providers. 4. Follow-up as per protocol. Patient educated on: diagnosis, medication risk/benefits, substance abuse and therapeutic strategies Informed Consent: understands Reason for contiued partial hosp. stay Substantial Risk for: harm to self, inability to function and rapid decompensation Certification I certify that partial hospital treatment is medically necessary due to the symptoms and problems resulting from the patient's mental illness and the failure to treat the patient at the partial hospital level of care would likely result in the patient requiring inpatient psychiatric care which could not be prevented at a less intensive level of care. I spent minutes with the patient and/or on the patient floor today, greater than?50% of which was spent counseling/coordinating care. Discharge Plan Discharge Attending provider: Ariel Patterson Medications: New lamotrigine 100 mg tablet 100 mg PO DAILY Qty: 30 0RF Discontinued lamotrigine [Subvenite] 25 mg tablet 75 mg PO DAILY 30 Days Qty: 90 0RF Rx Instructions: take once complete 50mg for 2 weeks No Action clonazepam 0.5 mg Tablet 1.5 mg PO DAILY PRN (Reason: anxiety) Qty: 0 0RF clonazepam 1 mg Tablet 3 mg PO BEDTIME Qty: 0 0RF duloxetine 60 mg capsule,delayed release(DR/EC) 120 mg PO DAILY 30 Days Qty: 60 0RF Emgality Pen 120 mg/mL pen injector 120 mg subcut QMONTH Label Comments: Last does per patient the middle of January 2022. Stand Alone Forms: Patient Portal Discharge page
--- NOTE | 2022-03-19 15:06 | PC.NURSE ---
Pt left after the 3rd group today, stating she has a migraine. She was in relatively good spirits and said she is safe.
[2022-03-22 18:21] LABS: Follicle Stimulating Hormone 8.6 mIU/mL; Lutenizing Hormone 5.6 mIU/mL
--- NOTE | 2022-03-25 15:37 | HO.PHPPROGNO ---
Subjective Subjective Date of Service: 03/25/22 Reason For Visit: MDD,LIDA,PTSD Medical Problems Affecting Mental Status: No Interim History: Reports had mild headache all last week, migraine over weekend. No SI, HI, AH, VH. No safety concerns. Reports feeling some improvement since starting program, less anxious, less depressed. Finding PHP helpful. Medication Compliance: Yes Side effects from medications: No Attending Groups: Yes Review of Systems Acute medical concerns: No Medical Review of Systems: unchanged Review of Systems Constitutional: Reports headache(s) (Migraine over weekend, has since resolved) Reports headache(s) (Migraine over weekend, has since resolved) Reports headache(s) (Migraine over weekend, has since resolved) Mental Status Exam Mental Status Exam Narrative: NAD. Patient Appearance: Well Grooomed and Appropriate Patient Orientation: Person, Place, Time and Situation Level of Consciousness: Appropriate Patient Behavior: Appropriate, Cooperative and Good Eye Contact Mood Description: Depressed and Anxious Affect Description: Appropriate, Depressed (Appears to be improving) and Anxious (Appears to be less anxious) Patient Cognition Impaired: No Ability to Follow Directions: Good Speech Pattern: Clear, Appropriate and Coherent Memory Description: Intact Hallucinations: None Delusions: Not Present Thought Process: Intact Thought Content: positive for Intact Depressive Symptoms: Increased Anxiety, Crying Spells, Loss of Int. in Activity and Unhappiness Judgement: Fair Assessment & Plan Assessment & Plan (1) Major depressive disorder, recurrent severe without psychotic features: Status: Acute Code(s): F33.2 - Major depressive disorder, recurrent severe without psychotic features Assessment and Plan: Reports had mild headache all last week, migraine over weekend. No SI, HI, AH, VH. No safety concerns. Reports feeling some improvement since starting program, less anxious, less depressed. Finding PHP helpful. (2) Chronic post-traumatic stress disorder (PTSD): Status: Acute Code(s): F43.12 - Post-traumatic stress disorder, chronic (3) Generalized anxiety disorder: Status: Acute Code(s): F41.1 - Generalized anxiety disorder (4) Alcohol use disorder, moderate, dependence: Status: Acute Code(s): F10.20 - Alcohol dependence, uncomplicated Assessment and Plan: Does not report drinking alcohol at this time. Continues to report daily cannabis use, does not identify this as a concern. Does participate in COD group. Plan 1. Continue with current PHP plan of care. 2. Continue with current medications as currently prescribed. 3. Follow-up as per protocol. Patient educated on: diagnosis, medication risk/benefits, substance abuse and therapeutic strategies Informed Consent: understands Reason for contiued partial hosp. stay Substantial Risk for: harm to self, inability to function and rapid decompensation Certification I certify that partial hospital treatment is medically necessary due to the symptoms and problems resulting from the patient's mental illness and the failure to treat the patient at the partial hospital level of care would likely result in the patient requiring inpatient psychiatric care which could not be prevented at a less intensive level of care. I spent minutes with the patient and/or on the patient floor today, greater than?50% of which was spent counseling/coordinating care. Discharge Plan Discharge Attending provider: Ariel Patterson Medications: New lamotrigine 100 mg tablet 100 mg PO DAILY Qty: 30 0RF Discontinued lamotrigine [Subvenite] 25 mg tablet 75 mg PO DAILY 30 Days Qty: 90 0RF Rx Instructions: take once complete 50mg for 2 weeks No Action clonazepam 0.5 mg Tablet 1.5 mg PO DAILY PRN (Reason: anxiety) Qty: 0 0RF clonazepam 1 mg Tablet 3 mg PO BEDTIME Qty: 0 0RF duloxetine 60 mg capsule,delayed release(DR/EC) 120 mg PO DAILY 30 Days Qty: 60 0RF Emgality Pen 120 mg/mL pen injector 120 mg subcut QMONTH Label Comments: Last does per patient the middle of January 2022. Stand Alone Forms: Patient Portal Discharge page Patient Education: Depression (DC), Alcohol Use Disorder (DC)
--- NOTE | 2022-03-26 11:06 | PC.NURSE ---
Patient told staff that she is going home today. I called patient and spoke to her. She stated she has, stuff going on . Stated she has a headache and PMS sxs. Wants to go home and lay on her couch as she needs to take a break. Stated her should be home as well. Asked patient if she was having any safety issues any SI and patient stated no. She also denied cravings for ETOH. Plans on returning to the program tomorrow. Team is aware.
[2022-03-28 20:22] LABS: Estradiol Free 0.84 pg/mL; Estradiol, Ultrasensitive 54 pg/mL
--- NOTE | 2022-04-01 14:23 | HO.PHPPROGNO ---
Subjective Subjective Date of Service: 04/01/22 Reason For Visit: MDD,LIDA,PTSD Medical Problems Affecting Mental Status: No Interim History: Describes feeling okay today . Taking medications as prescribed. No real mood improvement with added lamictal. No SI, no safety concerns. Says has learned new coping skills while in [facility], feels ready for discharge. Medication Compliance: Yes Side effects from medications: No Attending Groups: Yes Review of Systems Acute medical concerns: No Medical Review of Systems: unchanged Review of Systems Review of Systems Yes all other systems are reviewed and are negative Constitutional: Reports no additional constitutional complaints Mental Status Exam Mental Status Exam Narrative: NAD. Patient Appearance: Well Grooomed and Appropriate Patient Orientation: Person, Place, Time and Situation Level of Consciousness: Appropriate Patient Behavior: Appropriate, Cooperative and Good Eye Contact Mood Description: Appropriate Affect Description: Appropriate and Depressed (Appears to be improving) Patient Cognition Impaired: No Ability to Follow Directions: Excellent Speech Pattern: Clear, Appropriate and Coherent Memory Description: Intact Hallucinations: None Delusions: Not Present Thought Process: Intact Thought Content: positive for Intact Judgement: Good Assessment & Plan Assessment & Plan (1) Major depressive disorder, recurrent severe without psychotic features: Status: Acute Code(s): F33.2 - Major depressive disorder, recurrent severe without psychotic features Assessment and Plan: Describes feeling okay today . Taking medications as prescribed. No real mood improvement with added lamictal. Has been taking 100mg daily. We discussed the medication in detail, and she decided she will continue with this dose for now, and discuss further with her outpatient psychiatric provider going forward. No SI, no safety concerns. Says has learned new coping skills while in [facility], feels ready for discharge. (2) Generalized anxiety disorder: Status: Acute Code(s): F41.1 - Generalized anxiety disorder (3) Alcohol use disorder, moderate, dependence: Status: Acute Code(s): F10.20 - Alcohol dependence, uncomplicated (4) Chronic post-traumatic stress disorder (PTSD): Status: Acute Code(s): F43.12 - Post-traumatic stress disorder, chronic Plan 1. Refill for lamictal 100mg daily sent to pharmacy, 30-day supply. 2. patient appears stable for d/c from [facility] at this time. 3. Patient to f/u with outpatient providers going forward. Patient educated on: diagnosis, medication risk/benefits, substance abuse and therapeutic strategies Informed Consent: understands Reason for contiued partial hosp. stay Substantial Risk for: stable for discharge Certification I certify that partial hospital treatment is medically necessary due to the symptoms and problems resulting from the patient's mental illness and the failure to treat the patient at the partial hospital level of care would likely result in the patient requiring inpatient psychiatric care which could not be prevented at a less intensive level of care. I spent minutes with the patient and/or on the patient floor today, greater than?50% of which was spent counseling/coordinating care. Discharge Plan Discharge Attending provider: Ariel Patterson Medications: New lamotrigine 100 mg tablet 100 mg PO DAILY Qty: 30 0RF Discontinued lamotrigine [Subvenite] 25 mg tablet 75 mg PO DAILY 30 Days Qty: 90 0RF Rx Instructions: take once complete 50mg for 2 weeks No Action clonazepam 0.5 mg Tablet 1.5 mg PO DAILY PRN (Reason: anxiety) Qty: 0 0RF clonazepam 1 mg Tablet 3 mg PO BEDTIME Qty: 0 0RF duloxetine 60 mg capsule,delayed release(DR/EC) 120 mg PO DAILY 30 Days Qty: 60 0RF Emgality Pen 120 mg/mL pen injector 120 mg subcut QMONTH Label Comments: Last does per patient the middle of January 2022. Stand Alone Forms: Patient Portal Discharge page Patient Education: Mood Disorders (GEN), Depression (DC), Alcohol Use Disorder (DC)
--- NOTE | 2022-04-01 16:03 | PC.NURSE ---
I called and left a message for pt's therapist, Maia Hook informing her of pt's discharge from [facility] today.
--- NOTE | 2022-04-01 16:38 | PC.NURSE ---
Patient discharged from [facility] today 04/01/2022. Discharge routine. Patient reports ready for discharge, denies SI or HI. Patient met with [facility] for medication management. Patient states understanding of medications she is discharged on including name, use, dose and frequency. Patient states understanding of discharge plan. Patient discharged to out-patient providers. List of medications faxed to out-patient providers.
== END 2022-04-01 23:59 | disposition home or self-care (01) ==
LOC: HO.PHPA 12:45
PROVIDERS: Internal Medicine; Nurse Practitioner Psychiatric/Mental Health; Visit Provider Psychiatry & Neurology Psychiatry
DX: F33.2 Major depressive disorder, recurrent severe without psychotic features (principal); F43.12 Post-traumatic stress disorder, chronic; F41.1 Generalized anxiety disorder; F10.20 Alcohol dependence, uncomplicated; Z79.899 Other long term (current) drug therapy
CPT/HCPCS: 36415; 80307; 82670; 82681; 83001; 83002; 90791; 90853

== ENCOUNTER 2022-06-11 15:32 | Outpatient (REF) | payer OTHER, SELFPAY ==
[2022-06-12 07:10] LABS: Syphilis Screen Nonreactive (Nonreactive)
[2022-06-12 07:48] LABS: HIV AB/AG Nonreactive (Nonreactive); HIV Num 1 0.07 S/CO (0.00-0.99)
[2022-06-12 09:26] LABS: CT PCR NOT DETECTED (Not Detect.); NG PCR NOT DETECTED (Not Detect.)
[2022-06-17 16:30] LABS: Chlamydia Pneumoniae IgA <1:16 titer (<1:16); Chlamydia Pneumoniae IgG <1:64 titer (<1:64); Chlamydia Pneumoniae IgM <1:10 titer (<1:10); Chlamydia Psittaci IgA <1:16 titer (<1:16); Chlamydia Psittaci IgG <1:64 titer (<1:64); Chlamydia Psittaci IgM <1:10 titer (<1:10); Chlamydia Trachomatis IgA <1:16 titer (<1:16); Chlamydia Trachomatis IgG <1:64 titer (<1:64); Chlamydia Trachomatis IgM <1:10 titer (<1:10)
== END 2022-06-11 15:33 | disposition home or self-care (01) ==
LOC: HO.MANLDS 15:32
PROVIDERS: Visit Provider Internal Medicine
DX: Z00.00 Encounter for general adult medical examination without abnormal findings (principal); Z11.3 Encounter for screening for infections with a predominantly sexual mode of transmission; Z11.4 Encounter for screening for human immunodeficiency virus [HIV]
CPT/HCPCS: 86631; 86632; 86780; 87389; 87491; 87591

== ENCOUNTER 2023-03-13 15:17 | Inpatient (IN) | payer OTHER, SELFPAY ==
[2023-03-13] VITALS (7 sets, daily range): BP systolic 113–147; BP diastolic 62–89; PULSE 78–112; RESP 18–20; TEMP 36.5–37.2; O2SAT 94–100; BMI 23.8; BMI 25.5
--- NOTE | ~2023-03-13 | CT_ITS ---
EXAMINATION: CT ANGIOGRAM NECK WITH CONTRAST CLINICAL INFORMATION: Attempted hanging. No dysphagia or dyspnea. COMPARISON: None. TECHNIQUE: Test bolus sequences followed by intravenous administration 100 mL of Omnipaque 350. Helical imaging was performed in the axial plane from the thoracic inlet to the skull base. The data was processed at the geospatial technologist workstation for generation of MIP sequences. Angled MIPs and volume rendered reformatted images were also generated at an offline 3D workstation. Stenoses are assessed in accordance with NASCET criteria unless otherwise indicated. This CT examination was performed using dose optimization techniques as appropriate, variously including the following: *Automated exposure control *Adjustment of mA and/or kV according to patient size (this includes techniques or standardized protocols for targeted exams where dose is matched to indication/reason for exam; i.e. extremities or head) *Use of iterative reconstruction technique DLP: 483 mGy-cm FINDINGS: NECK CTA: There is a normal aortic arch with no significant stenosis of the great vessel origins. The common and internal carotid arteries are normal in course and caliber. Both vertebral arteries are widely patent throughout their extracranial cervical course. PARTIALLY IMAGED HEAD CTA: No large vessel occlusion is seen. The major intracranial arteries appear patent. NON-VASCULAR FINDINGS: No acute intracranial abnormality is seen. The hyoid bone and thyroid cartilage are unremarkable. No pharyngeal or laryngeal edema is seen. The trachea is patent. No consolidation is seen in the upper lungs. Degenerative changes are noted in the spine particularly at C5-C6 and C6-C7. Advanced facet arthropathy is seen at C7-T1. CT/CT angio neck IMPRESSION: No evidence of traumatic injury to the major neck arteries.
--- NOTE | 2023-03-13 15:23 | ED_ITS ---
HPI - General Adult General Chief complaint: Overdose Stated complaint: ? OD Time Seen by Provider: 03/13/23 15:39 Source: patient and family (Son) Mode of arrival: ambulatory History of Present Illness HPI narrative: This is a 47-year-old female with an extensive past medical history of major depressive disorder, suicide attempts, PTSD, and alcohol use disorder who comes in with her son today after intentionally overdosing: #30-200 mg ibuprofen Entire bottle of NyQuil Entire bottle of Robitussin DM Patient states that 1 of the events is that she has lost her mother and is currently managing her estate. Patient also endorses when it was noticed that she had injuries to her neck and she does state that she started to hang herself with a rope but that it did not feel right . She then left work and went to [facility]. Related Data Home Medications Medication Instructions Recorded Confirmed galcanezumab-gnlm 120 mg/mL 120 mg subcut QMONTH 02/07/22 03/05/22 subcutaneous pen injector (Emgality Pen) Previous Rx's Medication Instructions Recorded clonazepam 0.5 mg tablet 1.5 mg (3 x 0.5 mg) PO DAILY PRN 02/18/22 anxiety #0 tabs clonazepam 1 mg tablet 3 mg (3 x 1 mg) PO BEDTIME #0 tabs 02/18/22 duloxetine 60 mg capsule,delayed 120 mg (2 x 60 mg) PO DAILY 30 02/18/22 release days #60 caps lamotrigine 100 mg tablet 100 mg PO DAILY #30 tabs 04/01/22 Allergies Allergy/AdvReac Type Severity Reaction Status Date / Time topiramate [From TOPAMAX] Allergy Unknown SEVERE Verified 03/13/23 15:39 DEPRESSION Review of Systems 2 Review of Systems: Pertinent positives and negatives as stated in HPI [facility] Past Medical History Source: nursing notes reviewed Medical History (Updated 03/13/23 @ 20:22 by Saray Faith MD) History of migraine Alcohol use disorder, moderate, dependence Generalized anxiety disorder Chronic post-traumatic stress disorder (PTSD) Social History Social History Household Members: Spouse and Other Household Members Other:: 16 yr old daughter Housing: House Do you presently have visiting nurse or other home services: No Alcohol intake: current Alcohol intake frequency: 3 or more drinks per day Alcohol type: hard liquor Patient Tobacco Use Status: Former Tobacco user Smoked in Last 30 Days: No e-Cigarette/Vaping Use: Currently Using Second Hand Smoke Exposure: No Use of substances other than those prescribed or required for medical reasons: Yes Substance Use Type: Marijuana Advance Directives: No Advance Directives Information Provided: No service: No Sexual orientation: Straight/Heterosexual Physical Exam ED Vital Signs: Vital Signs - 24 hr 03/13/23 15:22 03/13/23 15:38 03/13/23 17:20 Temperature 98.9 F 98.2 F 98.8 F Pulse Rate 101 H 112 H 93 Respiratory Rate 20 18 20 Blood Pressure 147/89 H 138/88 137/76 Pulse Oximetry 97 100 98 Oxygen Delivery Method Room Air Room Air Room Air 03/13/23 19:40 Temperature 97.9 F Pulse Rate 94 Respiratory Rate 18 Blood Pressure 113/62 Pulse Oximetry 95 Oxygen Delivery Method Room Air BMI result Body Mass Index 25.5 VITAL SIGNS: Reviewed. GENERAL: Well developed, well nourished, in no acute distress. HEAD: Normocephalic/atraumatic EYES: PERRLA, EOMI, no conjunctival petechiae EARS: Ext canals without abnormality NOSE: Nares patent bilateral OROPHARYNX: no oral lesions noted, posterior pharynx clear and non-erythematous without noted tonsillar enlargement/erythema/exudates NECK: Supple, no adenopathy, there is an approximate 3 cm reddened band around anterior neck that encompasses circumferentially with mild localized swelling LUNGS: Normal breath sounds. No adventitious sounds or accessory muscle use. SpO2<100> CARDIOVASCULAR: Regular rate and rhythm without noted murmurs ABDOMEN: Soft, non-tender, non-distended with bowel sounds. MUSCULOSKELETAL: No tenderness, deformities, or effusions noted on gross inspection. EXTREMITIES: No cyanosis, clubbing or edema. SKIN: Inspection of the skin reveals no rashes NEUROLOGIC: Alert and oriented x 4. Strength and sensation to light touch were grossly intact x 4. Course Course Course Narrative: This is an RME: Additional HPI, ROS, PE not included below will be deferred to primary provider. cough medicine and ibuprofen This is an RME: Additional HPI, ROS, PE not included below will be deferred to primary provider. This is a 72-vhgx-cor-female, with a hx of etoh abuse, presenting to the emergency department for an intentional overdose. Son reports that is estimated that patient took around 80 capsules of ibuprofen, Robitussin, nyquil and patient fire ball. She has alcohol halitosis on examination, awake, patient tearful, airway pain lungs clear to auscultation. Patient tachycardic at 102bpm. Spoke to attending physician, Dr. Faith, patient and the to the main emergency department, EKG, stage set up worker, labs, salicylate level acetaminophen, and ethanol level ordered. Safety 1-1 also ordered. Patient moved to bed 21 in the main ER for further management. Medications Administered Discontinued Medications Generic Name Dose Route Start Last Admin Trade Name Freq PRN Reason Stop Dose Admin Charcoal 50 gm 03/13/23 16:20 03/13/23 16:31 Activated Charcoal 50 Gm/240 Ml Oral.Susp PO 03/13/23 16:21 50 gm ONCE ONE Administration Sodium Chloride 1,000 mls @ 999 mls/hr 03/13/23 17:00 03/13/23 18:58 Ns IV 03/13/23 18:00 Infused .Q1H1M GOLDEN Infusion Iohexol 100 ml 03/13/23 17:22 03/13/23 17:23 Iohexol 350 Mg/Ml 100 Ml Infus..Btl IV 03/13/23 17:23 70 ml ONCE ONE Administration Medical Decision Making Medical Decision Making MDM Narrative: 47-year-old female with history and clinical presentation consistent with intentional overdose and initial attempt to hang herself. We have contacted poison Control who makes the following recommendations: - activated charcoal (patient will receive 50 g) - acetaminophen levels (approx 7691, if 12oz bottle of Nyquil) - salicylate levels - seizure precaution, CMP/liver/renal functions - EKG Q2 x4 Patient is been Section 12. 1818: repeat acetaminophen level (OD time at approx 1400) I reviewed the CT angio of the neck which is negative for any vascular injury. Repeat EKG does not demonstrate any QT/QRS/QTC prolongation. 1839: Repeat acetaminophen-58 and does not meet 4hr nomogram for acetaminophen. 2013: EKG, normal sinus rhythm, HR-91, no STEMI, DC/QRS/QTC are within normal limits, QT -378. 2017: Poison Control recommends initiating NAC treatment and repeating lab work at this time. From I discussed the case with the inpatient hospitalist who accepts admission. Differential Diagnosis Differential Diagnoses: The differential diagnosis associated with the presentation includes Please see the discussion above Admission/Observation Consideration of admission/observation: Escalation of care including admission/observation considered Please see the discussion above Consult Healthcare Provider Management of the patient was discussed with: Hospitalist Please see the discussion above Lab Data MDM Lab Attestation statement: I reviewed the patient's lab results. Please see the discussion above 03/13/23 16:04 03/13/23 16:04 Labs: Lab Results 03/13/23 03/13/23 03/13/23 Range/Units 16:04 16:41 18:39 WBC 6.0 (4.8-10.8) X10*3/uL RBC 4.51 (4.20-5.50) X10*6/uL Hgb 13.8 (12.0-16.0) g/dl Hct 40.9 (37.0-47.0) % MCV 90.7 (80.0-98.0) fL MCH 30.6 (27.0-33.0) pg MCHC 33.7 (31.0-35.0) g/dl RDW 13.3 (11.0-16.0) % Plt Count 280 (160-400) X10*3/uL MPV 8.8 L (9.4-12.3) fL Immature Gran % (Auto) 0.3 (0.0-0.4) % Neut % (Auto) 63.2 (45-73) % Lymph % (Auto) 27.8 (20-40) % [place] % (Auto) 6.2 (2-11) % Eos % (Auto) 1.7 (0-4) % Baso % (Auto) 0.8 (0-2) % Lymph # (Auto) 1.7 (1.2-4.9) X10*3/uL [place] # (Auto) 0.4 (0.1-1.2) X10*3/uL Eos # (Auto) 0.1 (0.0-0.4) X10*3/uL Baso # (Auto) 0.1 (0.0-0.2) X10*3/uL Abs Immat Gran (auto) 0.02 (0.00-0.03) X10*3/uL Absolute Neuts (auto) 3.8 (2.0-8.3) x10*3/uL Absolute Nucleated RBC 0.000 (0.0-0.012) X10*3/uL Nucleated RBC % (auto) 0.0 (0.0-0.2) /100WBC PT 11.8 (11.1-13.3) SEC INR 1.0 (0.9-1.1) Sodium 143 (135-145) mmol/L Potassium 4.0 (3.3-5.1) mmol/L Chloride 105 (96-108) mmol/L Carbon Dioxide 29 (22-29) mmol/L Anion Gap 13 (12-20) BUN 12 (9-16) mg/dL Creatinine 0.95 (0.5-1.4) mg/dL Estim Creat Clear Calc 60.1 Estimated GFR > 60 Random Glucose 80 (60-115) mg/dL Calcium 9.8 (8.4-10.2) mg/dL Magnesium 1.9 (1.6-2.6) mg/dL Total Bilirubin 0.2 (0.0-1.0) mg/dL Direct Bilirubin < 0.2 (0.0-0.5) mg/dL AST 22 (5-31) U/L ALT 14 (0-31) U/L Alkaline Phosphatase 67 (39-117) U/L Total Protein 7.6 (6.5-8.0) g/dL Albumin 4.6 (3.5-5.0) g/dL Lipase 289 H (8-78) U/L Salicylates < 5.0 L (15-30) mg/dL Urine Opiates Screen Not Detected (Not Detect) Urine Fentanyl Screen Not Detected (Not Detect) Acetaminophen 38 H 58 H* (<30) mcg/mL Ur Barbiturates Screen Not Detected (Not Detect) Ur Phencyclidine Scrn Not Detected (Not Detect) Ur Amphetamines Screen Not Detected (Not Detect) U Benzodiazepines Scrn Not Detected (Not Detect) Urine Cocaine Screen Not Detected (Not Detect) U Marijuana (THC) Screen POSITIVE H (Not Detect) Ethyl Alcohol 108 mg/dL Independent Interpretation I performed an independent interpretation of an: EKG Interpretation: Normal sinus rhythm, HR-95, no STEMI, DC/QRS/QTC is within normal limits, QT- 340. 1843: Sinus rhythm, HR-92, no STEMI, DC/QRS are within normal limits, QT-360, QTC is within normal limits 2013: Sinus rhythm, HR-91, no STEMI, DC/QRS/QTC is within normal limits, QT-378 Radiology Impression Discussion of test interpretation with radiology: I have reviewed the radiologist's reading. Radiologist Impression: Please see the discussion above External Record Review External record reviewed: Outpatient record, Prior outpatient labs and Prior outpatient radiology Critical Care Time Critical Care Time Critical Care Time: Yes Total Critical Care Time: 60 Attestation: I personally attest to this time spent taking care of the patient. Discharge Plan Discharge Clinical Impression: Suicide attempt by drug overdose, Acetaminophen toxicity Patient Disposition: Admitted As Inpatient Prescriptions: No Action clonazepam 0.5 mg Tablet 1.5 mg PO DAILY PRN (Reason: anxiety) Qty: 0 0RF clonazepam 1 mg Tablet 3 mg PO BEDTIME Qty: 0 0RF duloxetine 60 mg capsule,delayed release(DR/EC) 120 mg PO DAILY 30 Days Qty: 60 0RF lamotrigine 100 mg tablet 100 mg PO DAILY Qty: 30 0RF Emgality Pen 120 mg/mL pen injector 120 mg subcut QMONTH Patient Comments: Last does per patient the middle of January 2022.
--- NOTE | 2023-03-13 15:31 | ECG_ITS ---
Test Reason : OD Blood Pressure : / mmHG Vent. Rate : 095 BPM Atrial Rate : 095 BPM P-R Int : 140 ms QRS Dur : 076 ms QT Int : 340 ms P-R-T Axes : 000 164 143 degrees QTc Int : 427 ms Suspect limb lead reversal, interpretation assumes no reversal Normal sinus rhythm Right axis deviation Abnormal ECG When compared with ECG of 13-FEB-2022 08:39, Vent. rate has increased BY 32 BPM QRS axis Shifted right T wave inversion now evident in Lateral leads Referred By: Saray Faith Electronically Signed By:BRIAN BRANDON
[2023-03-13 16:07] LABS: MANUAL DIFF FLAG NO
[2023-03-13 16:09] LABS: Basophils Absolute Auto 0.1 X10*3/uL (0.0-0.2); Basophils Percent Auto 0.8 % (0-2); Eosinophils Absolute Auto 0.1 X10*3/uL (0.0-0.4); Eosinophils Percent Auto 1.7 % (0-4); Hematocrit 40.9 % (37.0-47.0); Hemoglobin 13.8 g/dl (12.0-16.0); Imm Gran Abs Auto 0.02 X10*3/uL (0.00-0.03); Imm Gran Pct Auto 0.3 % (0.0-0.4); Lymphocytes Absolute Auto 1.7 X10*3/uL (1.2-4.9); Lymphocytes Percent Auto 27.8 % (20-40); Mean Corpuscular HGB Conc 33.7 g/dl (31.0-35.0); Mean Corpuscular Hemoglobin 30.6 pg (27.0-33.0); Mean Corpuscular Volume 90.7 fL (80.0-98.0); Mean Platelet Volume 8.8 fL (9.4-12.3); Monocytes Absolute Auto 0.4 X10*3/uL (0.1-1.2); Monocytes Percent Auto 6.2 % (2-11); Neutrophils Absolute Auto 3.8 x10*3/uL (2.0-8.3); Neutrophils Percent Auto 63.2 % (45-73); Platelet Count 280 X10*3/uL (160-400); Red Blood Count 4.51 X10*6/uL (4.20-5.50); Red Cell Distribution Width 13.3 % (11.0-16.0)
--- OUTSIDE RECORDS SUMMARY | 2023-03-13 16:13 | XMS_ITS | Continuity of Care Document ---
Author Name Unknown Organization [facility] Address [address] [place] [address]- Care Team Providers Care Platform Builder Name Role Phone Angel Hernandez DO Primary Care Physician [phone] Encounter [facility] Date(s): 05/06/20 - 06/05/20 [facility] [address] [place] [address]- Attending Physician: Sammy GILES, Florentin Referring Physician: Angel Hernandez DO Medications gabapentin 300 mg oral capsule 300 mg, 1, capsule, By Mouth, Daily at bedtime, # 30 capsule, Refills 3, Tot. Refills 3, Maintenance, 10/24/15 15:40:10, Route to Pharmacy Electronically, [id number], [facility]/pharmacy #[id number] Start Date: 10/24/15 Stop Date: 02/21/16 Status: Ordered Medrol Dosepak 4 mg oral tablet 1 pack/packet, By Mouth, Once, # 21 tablet, 0 Refills, Soft Stop, 09/04/15 9:17:13, Tablet, 1 pack/packet By Mouth Once Start Date: 09/04/15 Status: Ordered Medrol Dosepak 4 mg oral tablet 1 pack/packet, By Mouth, Once, as directed on package labeling, # 21 tablet, 0 Refills, Soft Stop, 02/11/19 14:54:58 EDT, Tablet Start Date: 02/11/19 Status: Ordered riboflavin 400 mg oral capsule 1 capsule = 400 mg, By Mouth, Daily, # 30 capsule, 6 Refills, Maintenance, 01/21/19 16:39:43 EDT, Capsule Start Date: 01/21/19 Stop Date: 08/19/19 Status: Ordered
--- OUTSIDE RECORDS SUMMARY | 2023-03-13 16:13 | XMS_ITS | Continuity of Care Document ---
Author Name Unknown Organization [facility] Address [address] [place] [address]- Care Team Providers Care Blind Installer Name Role Phone Angel Hernandez DO Yoli Primary Care Physician Encounter [id number] Date(s): 05/06/20 - 06/05/20 [facility] [address] [place], [place] [address] Attending Physician: Yvette Haq Admitting Physician: AdmYvette sanchez Referring Physician: AdmtrYvette Medications gabapentin 300 mg oral capsule 300 mg, 1, capsule, By Mouth, Daily at bedtime, # 30 capsule, Refills 3, Tot. Refills 3, Maintenance, 10/24/15 15:40:10, Route to Pharmacy Electronically, [id number], [facility]/pharmacy #2024 Start Date: 10/24/15 Stop Date: 02/21/16 [...]
[2023-03-13 16:14] LABS: Prothrombin Time 11.8 SEC (11.1-13.3)
--- NOTE | 2023-03-13 16:18 | PC.NURSE ---
call to poison control; recommended charcoal/cardiac monitoring/ekg q2 x 4/cmp, liver, renal function labs/acetaminophen and ibuprofen levels/seizure precautions. Dr. Faith notified. iv established.
[2023-03-13 16:24] LABS: Alanine Aminotransferase 14 U/L (0-31); Albumin Level 4.6 g/dL (3.5-5.0); Alkaline Phosphatase 67 U/L (39-117); Anion Gap 13 (12-20); Aspartate Amino Transferase 22 U/L (5-31); Bilirubin Direct < 0.2 mg/dL (0.0-0.5); Bilirubin Total 0.2 mg/dL (0.0-1.0); Blood Urea Nitrogen 12 mg/dL (9-16); Calcium 9.8 mg/dL (8.4-10.2); Carbon Dioxide 29 mmol/L (22-29); Chloride 105 mmol/L (96-108); Creatinine Clr Calc Pharmacy 60.1; Estimated Glomerular Filt Rate > 60; Ethanol 108 mg/dL; Glucose Random 80 mg/dL (60-115); Lipase 289 U/L (8-78); Magnesium 1.9 mg/dL (1.6-2.6); Sodium 143 mmol/L (135-145); Total Protein 7.6 g/dL (6.5-8.0)
[2023-03-13 16:27] LABS: Acetaminophen LAB 38 mcg/mL (<30); Salicylate < 5.0 mg/dL (15-30)
[2023-03-13] MEDS: Activated charcoaL 50 GM/240 ML ORAL.SUSP PO (16:31)
--- NOTE | 2023-03-13 16:48 | PC.NURSE ---
Addendum entered by Amy Morales 03/13/23 18:04: pt changed over with security; belongings in locker 12. Addendum entered by Amy Morales 03/13/23 17:40: respirations even and unlabored; sats 100% RA; no swelling noted of neck; airway patent. skin intact. Original Note: pt reports taking approx 30 pills of ibuprofen 200 mg each and Robitussin DM and Nyquil bottles intended OD/SI at 1400. pt reports ETOH use; unable to connect with AA member recently which triggered SI thoughts. pt reports last drink 1240 today; fireball 3 nips. redness noted around neck; pt reports attempt to hang self with rope but stopped as thats not how I wanted to go. pt reports SI thoughts have resolved and would like detox. axox4. neuros intact. pt denies cp/sob/n/v/d/blurry vision.
[2023-03-13 17:13] LABS: Amphetamine Screen Urine Not Detected (Not Detect); Barbiturates, Urine Not Detected (Not Detect); Benzodiazepines Screen Urine Not Detected (Not Detect); Cannabinoid Screen Urine POSITIVE (Not Detect); Cocaine Screen Urine Not Detected (Not Detect); Fentanyl, urine Not Detected (Not Detect); Opiate Screen Urine Not Detected (Not Detect); Phencyclidine Screen Urine Not Detected (Not Detect)
[2023-03-13] MEDS: iohexoL 350 MG/ML 100 ML INFUS..BTL IV (17:23)
[2023-03-13] MEDS: 0.9 % Sodium Chloride 1,000 ML 999 ML IV (17:43)
--- NOTE | 2023-03-13 18:04 | PC.NURSE ---
Addendum entered by Amy Morales 03/13/23 18:04: sitter at bedside. Original Note: ivf infusing; no changes to neuros at this time.
--- NOTE | 2023-03-13 18:22 | ECG_ITS ---
Test Reason : Overdose Blood Pressure : / mmHG Vent. Rate : 092 BPM Atrial Rate : 092 BPM P-R Int : 146 ms QRS Dur : 078 ms QT Int : 360 ms P-R-T Axes : 142 151 125 degrees QTc Int : 445 ms Suspect limb lead reversal, interpretation assumes no reversal Normal sinus rhythm Right axis deviation Nonspecific ST abnormality Abnormal ECG When compared with ECG of 13-MAR-2023 16:25, Nonspecific ST abnormality is now Present Referred By: Saray Faith Electronically Signed By:BRIAN BRANDON
--- NOTE | 2023-03-13 18:45 | PC.NURSE ---
Repeat Tylenol level being drawn and repeat EKG at this time. Pt ambulated to bathroom, unsteady at times per pt observer.
[2023-03-13 19:03] LABS: Acetaminophen LAB 58 mcg/mL (<30)
--- NOTE | 2023-03-13 19:10 | PC.NURSE ---
no change to neuros from previous assessment by this rn. labs and 2nd ekg obtained.
--- NOTE | 2023-03-13 19:46 | PC.NURSE ---
assumed care of patient at 1900, patient has 1:[address] due to SI attempted OD. Pt is resting comfortably on stretcher, offers no complaints to this RN at this time, respirations even and unlabored, skin pwd, no apparent distress. NS on monitor. Awaiting call back from poision control for next steps
--- NOTE | 2023-03-13 20:20 | PC.NURSE ---
this RN spoke with poison control about further treatment. It is recommended at this time to start acetylsystine, repeat labs and continue Q2h EKGs. Also, monitor for A&O status changes as well as Nystagmus
--- NOTE | 2023-03-13 20:22 | P.HPHOSP_ITS ---
History of Present Illness Date of Service: 03/13/23 Chief Complaint: Overdose This is a 47-year-old female with pertinent history of mood disorder, alcohol use disorder, PTSD, suicidal times in the past who was brought to the emergency department after intentional overdose. Patient states she went to [facility] and took an entire bottle of NyQuil, Robitussin and about 30 tablets of ibuprofen. Patient states that she feels low as she lost her mother. She has difficulty managing her work. Also states that she tried hanging herself with a rope but did not go through as it did not feel right. Does state she has difficulty managing her alcohol use disorder and consumes fireball whiskey. No history of alcohol withdrawals or alcohol withdrawal seizures. She denies fever, chills, chest discomfort, palpitations, shortness of breath, abdominal pain, changes in urinary or bowel habits. Does endorse nausea In the emergency department, acetaminophen level found to be elevated and patient was initiated on N-acetylcysteine. Review of Systems 2 Constitutional: Constitutional: Reports fatigue and Reports lethargy Cardiovascular: Cardiovascular: Reports no additional cardiovascular complaints Respiratory: Respiratory: Reports no additional respiratory complaints Gastrointestinal: Gastrointestinal: Reports nausea Genitourinary: Genitourinary: Reports no additional female genitourinary complaints Psychiatric: Psychiatric: Reports depression, Reports difficulty concentrating, Reports hopelessness, Reports anhedonia, Reports mood swings and Reports suicidal ideation Endocrine: Endocrine: Reports fatigue PMFSH Medical History History of migraine Alcohol use disorder, moderate, dependence Generalized anxiety disorder Chronic post-traumatic stress disorder (PTSD) Pertinent family history: No family history of CAD Social History Household Members: Spouse and Other Household Members Other:: 16 yr old daughter Housing: House Do you presently have visiting nurse or other home services: No Alcohol intake: current Alcohol intake frequency: 3 or more drinks per day Alcohol type: hard liquor Patient Tobacco Use Status: Former Tobacco user Smoked in Last 30 Days: No e-Cigarette/Vaping Use: Currently Using Second Hand Smoke Exposure: No Use of substances other than those prescribed or required for medical reasons: Yes Substance Use Type: Marijuana Advance Directives: No Advance Directives Information Provided: No Nutrition Risks: No Nutritional Risk service: No Sexual orientation: Straight/Heterosexual Meds Allergies Allergy/AdvReac Type Severity Reaction Status Date / Time topiramate [From TOPAMAX] Allergy Unknown SEVERE Verified 03/13/23 15:39 DEPRESSION Active Medications: Current Medications Acetylcysteine 3,060 mg/ (Dextrose) 515.3 mls @ 125 mls/hr IV ONCE ONE Stop: 03/14/23 00:25 Acetylcysteine 6,120 mg/ (Dextrose) 1,030.6 mls @ 62.5 mls/hr IV ONCE ONE Stop: 03/14/23 12:47 Home Medications Medication Instructions Recorded Confirmed Last Taken Type galcanezumab-gnlm 120 mg/mL 120 mg subcut QMONTH 02/07/22 03/13/23 02/26/23 History subcutaneous pen injector (Emgality Pen) clonazepam 2 mg tablet 4 mg PO BEDTIME 03/13/23 03/13/23 Unknown History lamotrigine 200 mg tablet 200 mg PO DAILY 03/13/23 03/13/23 Unknown History ubrogepant 100 mg tablet (Ubrelvy) 100 mg DAILY PRN Migraine Headache 03/13/23 03/13/23 Unknown History Physical Exam 2 Vital Signs and Narrative: Vital Signs: Last Vital Signs Temp 97.9 F 03/13/23 19:40 Pulse 94 03/13/23 19:40 Resp 18 03/13/23 19:40 BP 113/62 03/13/23 19:40 Pulse Ox 95 03/13/23 19:40 O2 Del Method Room Air 03/13/23 19:40 BMI result Body Mass Index 25.5 Middle-aged female lying in bed in no distress Neck supple, no JVD Regular rate and rhythm, S1-S2 heard Regular breath sounds bilaterally, no wheezing or crackles appreciated Abdomen soft nontender, no guarding, no rigidity Patient is awake, alert and oriented to self, place, time and person ; no focal motor deficit Psych: Normal mood No pedal edema Results Labs 03/13/23 20:24 03/13/23 20:24 Labs: Laboratory Results - last 24 hr 03/13/23 03/13/23 03/13/23 16:04 16:41 18:39 MCV 90.7 MCH 30.6 MCHC 33.7 RDW 13.3 Plt Count 280 MPV 8.8 L Immature Gran % (Auto) 0.3 Neut % (Auto) 63.2 Lymph % (Auto) 27.8 [place] % (Auto) 6.2 Eos % (Auto) 1.7 Baso % (Auto) 0.8 Lymph # (Auto) 1.7 [place] # (Auto) 0.4 Eos # (Auto) 0.1 Baso # (Auto) 0.1 Abs Immat Gran (auto) 0.02 Absolute Neuts (auto) 3.8 Absolute Nucleated RBC 0.000 Nucleated RBC % (auto) 0.0 PT 11.8 INR 1.0 Anion Gap 13 Estim Creat Clear Calc 60.1 Estimated GFR > 60 Random Glucose 80 Calcium 9.8 Magnesium 1.9 Total Bilirubin 0.2 Direct Bilirubin < 0.2 AST 22 ALT 14 Alkaline Phosphatase 67 Total Protein 7.6 Albumin 4.6 Lipase 289 H Salicylates < 5.0 L Urine Opiates Screen Not Detected Urine Fentanyl Screen Not Detected Acetaminophen 38 H 58 H* Ur Barbiturates Screen Not Detected Ur Phencyclidine Scrn Not Detected Ur Amphetamines Screen Not Detected U Benzodiazepines Scrn Not Detected Urine Cocaine Screen Not Detected U Marijuana (THC) Screen POSITIVE H Ethyl Alcohol 108 Imaging Radiologist's Impressions: Impressions Neck CTA 03/13/23 17:18 IMPRESSION: No evidence of traumatic injury to the major neck arteries. Assessment and Plan (1) Acetaminophen toxicity: Status: Acute (2) Suicide attempt by drug overdose: Status: Acute (3) Generalized anxiety disorder: Status: Acute (4) Major depressive disorder, recurrent severe without psychotic features: Status: Acute Plan This is a 47-year-old female with pertinent history of mood disorder, alcohol use disorder, PTSD, suicidal times in the past who was brought to the emergency department after intentional overdose. #. Acetaminophen overdose. Initiated on N-acetylcysteine therapy in the ER. Will continue 20 hour IV protocol. Repeat serum acetaminophen, INR, bicarb, serum creatinine and ALT in a.m. #. Suicide attempt. Patient admitted with 1:1 observation. Consulting CARE team #. Mood disorder. Continue home mood stabilizers #. Alcohol use disorder. Monitor CIWA. Initiating thiamine and folic acid. Consulting CARE and addiction team. DVT prophylaxis: Lovenox Full code Admit as inpatient and will require two night minimum hospital stay for IV NAC protocol and close monitoring of electrolytes. Time Spent With Patient Time: Total time managing care of this patient today ____ minutes. Quality Stroke Does the patient have a stroke diagnosis?: No VTE Prior VTE?: No VTE Risk Level:: Medical - moderate - high VTE Device Contraindication: Treatment Not Indicated VTE Drug Contraindication: N/A - Med Ordered
--- NOTE | 2023-03-13 20:22 | ECG_ITS ---
Test Reason : Overdose Blood Pressure : / mmHG Vent. Rate : 091 BPM Atrial Rate : 091 BPM P-R Int : 150 ms QRS Dur : 074 ms QT Int : 378 ms P-R-T Axes : 038 022 050 degrees QTc Int : 464 ms Normal sinus rhythm Nonspecific ST abnormality Abnormal ECG When compared with ECG of 13-MAR-2023 18:43, QRS axis Shifted left Referred By: Saray Faith Electronically Signed By:BRIAN BRANDON
--- NOTE | 2023-03-13 20:28 | PC.NURSE ---
awaiting pharmacy for Acetylcysteine at this time
[2023-03-13 20:29] LABS: MANUAL DIFF FLAG NO
[2023-03-13 20:31] LABS: Basophils Absolute Auto 0.1 X10*3/uL (0.0-0.2); Basophils Percent Auto 0.8 % (0-2); Eosinophils Absolute Auto 0.1 X10*3/uL (0.0-0.4); Eosinophils Percent Auto 1.1 % (0-4); Hematocrit 37.4 % (37.0-47.0); Hemoglobin 12.5 g/dl (12.0-16.0); Imm Gran Abs Auto 0.02 X10*3/uL (0.00-0.03); Imm Gran Pct Auto 0.3 % (0.0-0.4); Lymphocytes Absolute Auto 2.7 X10*3/uL (1.2-4.9); Lymphocytes Percent Auto 43.1 % (20-40); Mean Corpuscular HGB Conc 33.4 g/dl (31.0-35.0); Mean Corpuscular Hemoglobin 30.5 pg (27.0-33.0); Mean Corpuscular Volume 91.2 fL (80.0-98.0); Mean Platelet Volume 8.8 fL (9.4-12.3); Monocytes Absolute Auto 0.4 X10*3/uL (0.1-1.2); Monocytes Percent Auto 7.1 % (2-11); Neutrophils Percent Auto 47.6 % (45-73); Platelet Count 256 X10*3/uL (160-400); Red Cell Distribution Width 13.3 % (11.0-16.0); White Blood Count 6.2 X10*3/uL (4.8-10.8)
[2023-03-13 20:54] LABS: Alanine Aminotransferase 12 U/L (0-31); Albumin Level 3.9 g/dL (3.5-5.0); Alkaline Phosphatase 57 U/L (39-117); Anion Gap 14 (12-20); Aspartate Amino Transferase 18 U/L (5-31); Bilirubin Direct < 0.2 mg/dL (0.0-0.5); Bilirubin Total 0.2 mg/dL (0.0-1.0); Blood Urea Nitrogen 8 mg/dL (9-16); Calcium 8.4 mg/dL (8.4-10.2); Carbon Dioxide 23 mmol/L (22-29); Chloride 111 mmol/L (96-108); Creatinine Clr Calc Pharmacy 70.5; Estimated Glomerular Filt Rate > 60; Ethanol 23 mg/dL; Glucose Random 89 mg/dL (60-115); Lipase 155 U/L (8-78); Potassium 3.6 mmol/L (3.3-5.1); Sodium 144 mmol/L (135-145); Total Protein 6.3 g/dL (6.5-8.0)
[2023-03-13 20:55] LABS: Acetaminophen LAB 51 mcg/mL (<30)
--- NOTE | 2023-03-13 21:14 | PHA.MEDREC ---
med rec complete, patient very drowsy, and barely answering, but went over meds filled at home pharmacy Pharmacy Consult ? Medication Reconciliation Pharmacy has completed the medication reconciliation.
[2023-03-13] MEDS: ondansetron HCL 4 MG/2 ML VIAL IVPUSH (21:49)
[2023-03-13] MEDS: Thiamine HCL 100 MG in 0.9 % Sodium Chloride 100 ML 202 MG IV (21:50)
[2023-03-13] MEDS: Enoxaparin Sodium 40 MG/0.4 ML SYRINGE SUBCUT (21:51)
--- NOTE | 2023-03-13 21:57 | PC.NURSE ---
spoke with poison control again to update them on labs and pt status. recommendation to slow NAC if patient is vomiting.
--- NOTE | 2023-03-13 21:57 | PC.NURSE ---
Addendum entered by Tana Mota 03/14/23 03:12: labs to be drawn at 1735 on 03/14 (all labs ordered as such in order set) Original Note: PER POISON CONTROL: repeat the follow 2 hours prior to finishing the 16 hour bag of NAC -EKG -CBC -CMP -liver -lipase -acetaminophen -ethanol monitor for seizure activity d/t serotonin syndrome monitor for nystagmus
--- NOTE | 2023-03-13 22:22 | ECG_ITS ---
Test Reason : Overdose Blood Pressure : / mmHG Vent. Rate : 085 BPM Atrial Rate : 085 BPM P-R Int : 162 ms QRS Dur : 084 ms QT Int : 402 ms P-R-T Axes : 049 035 047 degrees QTc Int : 478 ms Normal sinus rhythm Normal ECG When compared with ECG of 13-MAR-2023 20:13, No significant change was found Referred By: Saray Faith Electronically Signed By:BRIAN BRANDON
[2023-03-13] MEDS: 0.9 % Sodium Chloride Flush 3 ML SYRINGE IVFLUSH (22:47)
[2023-03-14] VITALS (8 sets, daily range): BP systolic 124–174; BP diastolic 78–106; PULSE 74–101; RESP 14–20; TEMP 36.5–36.9; O2SAT 98–99; BMI 25.0
--- NOTE | 2023-03-14 01:51 | PC.NURSE ---
late entry: second IV started on patient 20g LFA
--- NOTE | 2023-03-14 03:13 | PC.NURSE ---
patient continues to rest, respirations even and unlabored, skin pwd, no apparent distress. Patient ambulated independently to bathroom. Pt offers no complaints to this RN at this time. All future labs placed in order set. Final bag of NAC hung
--- NOTE | 2023-03-14 04:22 | PC.NURSE ---
Took over care from TAINA Ashton at 3:00am, no sign of distress, pt being on bed side monitor. Will continue to monitor.
[2023-03-14 04:50] LABS: MANUAL DIFF FLAG NO
[2023-03-14 04:53] LABS: Basophils Absolute Auto 0.1 X10*3/uL (0.0-0.2); Basophils Percent Auto 0.7 % (0-2); Eosinophils Percent Auto 0.4 % (0-4); Hematocrit 39.6 % (37.0-47.0); Hemoglobin 13.3 g/dl (12.0-16.0); Imm Gran Abs Auto 0.01 X10*3/uL (0.00-0.03); Imm Gran Pct Auto 0.1 % (0.0-0.4); Lymphocytes Absolute Auto 2.3 X10*3/uL (1.2-4.9); Mean Corpuscular HGB Conc 33.6 g/dl (31.0-35.0); Mean Corpuscular Hemoglobin 31.1 pg (27.0-33.0); Mean Corpuscular Volume 92.5 fL (80.0-98.0); Mean Platelet Volume 9.2 fL (9.4-12.3); Monocytes Absolute Auto 0.5 X10*3/uL (0.1-1.2); Monocytes Percent Auto 7.4 % (2-11); Neutrophils Absolute Auto 4.1 x10*3/uL (2.0-8.3); Neutrophils Percent Auto 58.4 % (45-73); Platelet Count 274 X10*3/uL (160-400); Red Blood Count 4.28 X10*6/uL (4.20-5.50); Red Cell Distribution Width 13.5 % (11.0-16.0)
[2023-03-14 04:59] LABS: INTERNATIONAL NORM RATIO 1.2 (0.9-1.1)
[2023-03-14 05:11] LABS: Alanine Aminotransferase 11 U/L (0-31); Albumin Level 3.7 g/dL (3.5-5.0); Alkaline Phosphatase 52 U/L (39-117); Anion Gap 12 (12-20); Aspartate Amino Transferase 19 U/L (5-31); Bilirubin Total 0.4 mg/dL (0.0-1.0); Blood Urea Nitrogen 10 mg/dL (9-16); Calcium 8.2 mg/dL (8.4-10.2); Carbon Dioxide 24 mmol/L (22-29); Chloride 109 mmol/L (96-108); Creatinine Clr Calc Pharmacy 66.4; Estimated Glomerular Filt Rate > 60; Glucose Random 121 mg/dL (60-115); Potassium 3.5 mmol/L (3.3-5.1); Sodium 141 mmol/L (135-145); Total Protein 6.1 g/dL (6.5-8.0)
--- NOTE | 2023-03-14 07:19 | PC.NURSE ---
Alert and oriented, denies pain or discomfort, oob ambulating to bathroom, gait steady. VSS, remains with 1:1 for safety.
[2023-03-14] MEDS: 0.9 % Sodium Chloride Flush 3 ML SYRINGE IVFLUSH ×3 (07:22→21:37)
[2023-03-14] MEDS: Folic Acid 1 MG TABLET PO (08:05)
[2023-03-14] MEDS: lamoTRIgine 100 MG TABLET 200 MG PO (08:05)
[2023-03-14] MEDS: Thiamine HCL 100 MG TABLET PO (08:05)
--- NOTE | 2023-03-14 08:08 | PC.NURSE ---
Patient declined cymbalta stating she only takes the blue and white capsule not the blue and yellow. Patient stating it will make her sick and she needs the generic that starts with an A. Educated that the generic for duloxetine is cymbalta. Called pharmacy, pharmacy stating that the only available form is duloxetine. Patient aware, continues to decline medication stating that is will make her sick.
[2023-03-14 08:25] LABS: Acetaminophen LAB < 17 mcg/mL (<30)
--- NOTE | 2023-03-14 09:08 | MHC.CM.PN ---
DC plan is TBD/IPLOC appears likely r/t Intentional Suicide attempts and HX of Suicide Attempts/Drug Overdoses, Depression, Anxiety, PTSD,ETOH; CM has initiated and will follow for dc planning. Patient lives with her and her PCP is Dr. Angel Hernandez, Psych Prescriber is Maricel Woodall, Therapist is Veda Hook.CM will follow.
--- NOTE | 2023-03-14 09:26 | PC.NURSE ---
Patient without nystagmus or seizure activity. Provided with phone to call family, calm and cooperative, remains with 1:1 for safety.
--- NOTE | 2023-03-14 11:07 | HO.PM.IMPN ---
Subjective Subjective Date of Service: 03/14/23 Interval History: depressed, SI Physical Exam Vital Signs: Vital Signs: Last Vital Signs Temp 98 F 03/14/23 07:18 Pulse 85 03/14/23 10:38 Resp 19 03/14/23 10:38 BP 174/106 H 03/14/23 10:38 Pulse Ox 99 03/14/23 10:38 O2 Del Method Room Air 03/14/23 10:38 BMI result Body Mass Index 25.5 General: AO X 3, no acute distress Resp: CTA bilateral, no accessory muscles used CVS: S1,S2,RRR GI: soft, non tender, non distended Neuro: motor grossly intact, alert Psych: appropriate affect, appropriate insight Objective Data Active Medications Clonazepam (Clonazepam 1 Mg Tablet) 4 mg PO BEDTIME [facility] Duloxetine HCl (Duloxetine Hcl 60 Mg Capsule.Dr) 120 mg PO DAILY [facility] Last Admin: 03/14/23 08:08 Dose: Not Given Documented By: LEXII Non-Admin Reason: Patient Refused Enoxaparin Sodium (Enoxaparin Sodium 40 Mg/0.4 Ml Syringe) 40 mg SUBCUT Q24H [facility] Last Admin: 03/13/23 21:51 Dose: 40 mg Documented By: ROXANNE Folic Acid (Folic Acid 1 Mg Tablet) 1 mg PO DAILY [facility] Last Admin: 03/14/23 08:05 Dose: 1 mg Documented By: LEXII Acetylcysteine 6,120 mg/ (Dextrose) 1,030.6 mls @ 62.5 mls/hr IV ONCE@0200 [facility] Stop: 03/14/23 18:30 Last Admin: 03/14/23 03:05 Dose: 62.5 mls/hr Documented By: ROXANNE Lamotrigine (Lamotrigine 100 Mg Tablet) 200 mg PO DAILY [facility] Last Admin: 03/14/23 08:05 Dose: 200 mg Documented By: LEXII Melatonin (Melatonin 3 Mg Tablet) 6 mg PO BEDTIME PRN PRN Reason: Insomnia Ondansetron HCl (Ondansetron Hcl 4 Mg/2 Ml Vial) 4 mg IVPUSH Q8H PRN PRN Reason: Nausea and Vomiting Last Admin: 03/13/23 21:49 Dose: 4 mg Documented By: ROXANEN Sodium Chloride (0.9 % Sodium Chloride Flush 3 Ml Syringe) 3 ml IVFLUSH QSHIFT [facility] Last Admin: 03/14/23 07:22 Dose: 3 ml Documented By: LEXII Thiamine HCl (Thiamine Hcl 100 Mg Tablet) 100 mg PO DAILY [facility] Last Admin: 03/14/23 08:05 Dose: 100 mg Documented By: LEXII Labs 03/14/23 04:38 03/14/23 04:38 Labs: Laboratory Results - last 24 hr 03/13/23 03/13/23 03/13/23 16:04 16:41 18:39 MCV 90.7 MCH 30.6 MCHC 33.7 RDW 13.3 Plt Count 280 MPV 8.8 L Immature Gran % (Auto) 0.3 Neut % (Auto) 63.2 Lymph % (Auto) 27.8 [place] % (Auto) 6.2 Eos % (Auto) 1.7 Baso % (Auto) 0.8 Lymph # (Auto) 1.7 [place] # (Auto) 0.4 Eos # (Auto) 0.1 Baso # (Auto) 0.1 Abs Immat Gran (auto) 0.02 Absolute Neuts (auto) 3.8 Absolute Nucleated RBC 0.000 Nucleated RBC % (auto) 0.0 PT 11.8 INR 1.0 Anion Gap 13 Estim Creat Clear Calc 60.1 Estimated GFR > 60 Random Glucose 80 Calcium 9.8 Magnesium 1.9 Total Bilirubin 0.2 Direct Bilirubin < 0.2 AST 22 ALT 14 Alkaline Phosphatase 67 Total Protein 7.6 Albumin 4.6 Lipase 289 H Salicylates < 5.0 L Urine Opiates Screen Not Detected Urine Fentanyl Screen Not Detected Acetaminophen 38 H 58 H* Ur Barbiturates Screen Not Detected Ur Phencyclidine Scrn Not Detected Ur Amphetamines Screen Not Detected U Benzodiazepines Scrn Not Detected Urine Cocaine Screen Not Detected U Marijuana (THC) Screen POSITIVE H Ethyl Alcohol 108 03/13/23 03/14/23 03/14/23 20:24 04:38 07:54 MCV 91.2 92.5 MCH 30.5 31.1 MCHC 33.4 33.6 RDW 13.3 13.5 Plt Count 256 274 MPV 8.8 L 9.2 L Immature Gran % (Auto) 0.3 0.1 Neut % (Auto) 47.6 58.4 Lymph % (Auto) 43.1 H 33.0 [place] % (Auto) 7.1 7.4 Eos % (Auto) 1.1 0.4 Baso % (Auto) 0.8 0.7 Lymph # (Auto) 2.7 2.3 [place] # (Auto) 0.4 0.5 Eos # (Auto) 0.1 0.0 Baso # (Auto) 0.1 0.1 Abs Immat Gran (auto) 0.02 0.01 Absolute Neuts (auto) 3.0 4.1 Absolute Nucleated RBC 0.000 0.000 Nucleated RBC % (auto) 0.0 0.0 PT 14.0 H INR 1.2 H Anion Gap 14 12 Estim Creat Clear Calc 70.5 66.4 Estimated GFR > 60 > 60 Random Glucose 89 121 H Calcium 8.4 D 8.2 L Magnesium Total Bilirubin 0.2 0.4 Direct Bilirubin < 0.2 AST 18 19 ALT 12 11 Alkaline Phosphatase 57 52 Total Protein 6.3 L 6.1 L Albumin 3.9 3.7 Lipase 155 H Salicylates Urine Opiates Screen Urine Fentanyl Screen Acetaminophen 51 H* < 17 Ur Barbiturates Screen Ur Phencyclidine Scrn Ur Amphetamines Screen U Benzodiazepines Scrn Urine Cocaine Screen U Marijuana (THC) Screen Ethyl Alcohol 23 Assessment and Plan (1) Acetaminophen toxicity: Status: Acute Plan 47F PMH mood disorder, etoh dependence, ptsd, presented with intentionaly tylenol overdose acetominophen toxicity NAC monitor lfts depression with suicide attempt 1:1, clearance prior to dc eoth dependence ciwa dvt prophyalxis - lovenox full code reason for continued hospitalization:NAC protocol Time Spent With Patient Time: Total time managing care of this patient today ____ minutes. Quality Stroke Does the patient have a stroke diagnosis?: No VTE Prior VTE?: No VTE Risk Level:: Medical - moderate - high VTE Device Contraindication: Treatment Not Indicated VTE Drug Contraindication: N/A - Med Ordered
--- NOTE | 2023-03-14 13:50 | PC.NURSE ---
Alert and oriented, calm and cooperative, denies pain or discomfort. Denies SI or HI, no nystagmus or seizure activity noted.
[2023-03-14 14:04] LABS: IDNOW Serial# 08D9AD1C; Strep A Nucleic Acid Negative (Negative)
[2023-03-14 14:41] LABS: Influenza A PCR NEGATIVE (Negative); Influenza B PCR NEGATIVE (Negative); Resp Syncy Virus RNA Qual PCR NEGATIVE (Negative); SARS COV2 PCR INHOUSE NEGATIVE (Negative)
--- NOTE | 2023-03-14 15:00 | PC.NURSE ---
Calm and cooperative, denies pain or discomfort, 1:[address] for safety, nsr on monitor
--- NOTE | 2023-03-14 15:12 | PC.NURSE ---
Poison control updated on current condition/labs
--- NOTE | 2023-03-14 15:16 | PC.NURSE ---
Poison control called with recomendations for check tylenol and pt/inr at 1735, provider notified via tiger text.
--- NOTE | 2023-03-14 15:33 | MHC.RECOVRN ---
Addendum entered by Maritza Lizarraga RN 03/14/23 17:54: Pt provided with resource folder, recovery to follow up tomorrow. Original Note: Pt provided with list of commercial detox per request. Pt stating that she does not want to go to the fifth floor, feels as though she needs help for her ETOH use, not for psych. Reporting that she is to be discharged tomorrow. Pt asking for resource folder at this time.
--- NOTE | 2023-03-14 17:35 | ECG_ITS ---
Test Reason : Overdose Blood Pressure : / mmHG Vent. Rate : 081 BPM Atrial Rate : 081 BPM P-R Int : 152 ms QRS Dur : 082 ms QT Int : 364 ms P-R-T Axes : 012 017 029 degrees QTc Int : 422 ms Normal sinus rhythm Normal ECG When compared with ECG of 13-MAR-2023 22:28, QT has shortened Referred By: Ethel Weir Electronically Signed By:BRIAN BRANDON
[2023-03-14 18:07] LABS: MANUAL DIFF FLAG NO
[2023-03-14 18:24] LABS: Acetaminophen LAB < 17 mcg/mL (<30)
[2023-03-14 18:26] LABS: Alanine Aminotransferase 11 U/L (0-31); Albumin Level 3.8 g/dL (3.5-5.0); Alkaline Phosphatase 56 U/L (39-117); Anion Gap 13 (12-20); Aspartate Amino Transferase 18 U/L (5-31); Bilirubin Direct 0.2 mg/dL (0.0-0.5); Bilirubin Total 0.2 mg/dL (0.0-1.0); Blood Urea Nitrogen 9 mg/dL (9-16); Calcium 8.6 mg/dL (8.4-10.2); Carbon Dioxide 25 mmol/L (22-29); Chloride 106 mmol/L (96-108); Creatinine Clr Calc Pharmacy 56.5; Estimated Glomerular Filt Rate 58; Ethanol < 10 mg/dL; Glucose Random 112 mg/dL (60-115); Lipase 19 U/L (8-78); Sodium 141 mmol/L (135-145); Total Protein 6.2 g/dL (6.5-8.0)
[2023-03-14 18:34] LABS: Basophils Absolute Auto 0.1 X10*3/uL (0.0-0.2); Basophils Percent Auto 0.7 % (0-2); Eosinophils Absolute Auto 0.2 X10*3/uL (0.0-0.4); Eosinophils Percent Auto 1.9 % (0-4); Hematocrit 37.4 % (37.0-47.0); Hemoglobin 12.6 g/dl (12.0-16.0); Imm Gran Abs Auto 0.03 X10*3/uL (0.00-0.03); Imm Gran Pct Auto 0.3 % (0.0-0.4); Lymphocytes Absolute Auto 4.1 X10*3/uL (1.2-4.9); Lymphocytes Percent Auto 37.9 % (20-40); Mean Corpuscular HGB Conc 33.7 g/dl (31.0-35.0); Mean Corpuscular Hemoglobin 30.5 pg (27.0-33.0); Mean Corpuscular Volume 90.6 fL (80.0-98.0); Mean Platelet Volume 9.4 fL (9.4-12.3); Monocytes Absolute Auto 0.9 X10*3/uL (0.1-1.2); Neutrophils Absolute Auto 5.5 x10*3/uL (2.0-8.3); Neutrophils Percent Auto 51.2 % (45-73); Platelet Count 265 X10*3/uL (160-400); Red Blood Count 4.13 X10*6/uL (4.20-5.50); Red Cell Distribution Width 13.6 % (11.0-16.0); White Blood Count 10.7 X10*3/uL (4.8-10.8)
[2023-03-14 18:42] LABS: Prothrombin Time 12.5 SEC (11.1-13.3)
--- NOTE | 2023-03-14 18:43 | PC.NURSE ---
Poison control called, reviewed labs , patient medically cleared from their perspective
--- NOTE | 2023-03-14 18:48 | PC.NURSE ---
Message sent to putter in regarding patients completed med rec with pharamacy , patient requesting to be given home dose tonight
--- NOTE | 2023-03-14 20:32 | MHC.EDTECH ---
THIS PCT ASSUMED CARE OF PT AT 2030 ,VITALS SIGN TAKEN ,PT COMFORTABLE WATCHING TELEVISION ,1 :1 SITTER AT BEDSIDE .
[2023-03-14] MEDS: clonazePAM 1 MG TABLET 4 MG PO (21:37)
[2023-03-14] MEDS: Melatonin 3 MG TABLET 6 MG PO (21:37)
[2023-03-14] MEDS: Enoxaparin Sodium 40 MG/0.4 ML SYRINGE SUBCUT (21:37)
[2023-03-15] VITALS (7 sets, daily range): BP systolic 100–167; BP diastolic 58–88; PULSE 64–87; RESP 14–20; TEMP 36.1–36.7; O2SAT 97–100
[2023-03-15 06:47] LABS: Hematocrit 39.2 % (37.0-47.0); Hemoglobin 13.2 g/dl (12.0-16.0); Mean Corpuscular HGB Conc 33.7 g/dl (31.0-35.0); Mean Corpuscular Hemoglobin 30.3 pg (27.0-33.0); Mean Corpuscular Volume 89.9 fL (80.0-98.0); Platelet Count 269 X10*3/uL (160-400); Red Blood Count 4.36 X10*6/uL (4.20-5.50); Red Cell Distribution Width 13.3 % (11.0-16.0)
[2023-03-15 06:51] LABS: INTERNATIONAL NORM RATIO 0.9 (0.9-1.1); Prothrombin Time 11.4 SEC (11.1-13.3)
[2023-03-15 06:57] LABS: Alanine Aminotransferase 11 U/L (0-31); Albumin Level 3.6 g/dL (3.5-5.0); Alkaline Phosphatase 52 U/L (39-117); Anion Gap 9 (12-20); Aspartate Amino Transferase 19 U/L (5-31); Bilirubin Direct 0.1 mg/dL (0.0-0.5); Bilirubin Total 0.4 mg/dL (0.0-1.0); Blood Urea Nitrogen 7 mg/dL (9-16); Calcium 8.9 mg/dL (8.4-10.2); Carbon Dioxide 29 mmol/L (22-29); Chloride 108 mmol/L (96-108); Creatinine Clr Calc Pharmacy 68.2; Estimated Glomerular Filt Rate > 60; Glucose Fasting 101 mg/dL (60-99); Potassium 3.2 mmol/L (3.3-5.1); Sodium 143 mmol/L (135-145); Total Protein 6.1 g/dL (6.5-8.0)
[2023-03-15 06:59] LABS: Acetaminophen LAB < 17 mcg/mL (<30)
[2023-03-15] MEDS: 0.9 % Sodium Chloride Flush 3 ML SYRINGE IVFLUSH (08:04)
[2023-03-15] MEDS: lamoTRIgine 100 MG TABLET 200 MG PO (08:06)
[2023-03-15] MEDS: Potassium Chloride Packet 20 MEQ PACKET 40 MEQ PO (08:06)
[2023-03-15] MEDS: Thiamine HCL 100 MG TABLET PO (08:06)
[2023-03-15] MEDS: Folic Acid 1 MG TABLET PO (08:07)
--- NOTE | 2023-03-15 15:20 | HO.PM.IMPN ---
Subjective Subjective Date of Service: 03/16/23 Interval History: Feels better less anxious still depressed but no suicidal threats Sitter in the room Review of Systems Review of Systems: Yes all other systems are reviewed and are negative Physical Exam Vital Signs: Vital Signs: Last Vital Signs Temp 98.0 F 03/15/23 10:57 Pulse 81 03/15/23 10:57 Resp 20 03/15/23 10:57 BP 167/88 H 03/15/23 10:57 Pulse Ox 100 03/15/23 10:57 O2 Del Method Room Air 03/15/23 10:57 BMI result Body Mass Index 25.0 Const: Other: Constitutional : Awake, interactive, not in distress Neck : Normal inspection, Supple Cardiovascular : RRR, no JVP, no lower extremity edema Respiratory : good bilateral air entry, no crackles, wheezes or rhonchi Gastrointestinal: soft, lax, Normal bowel sounds, Non tender Skin : Warm, Dry Neurological : Alert & oriented x3, No focal deficit Objective Data Active Medications Clonazepam (Clonazepam 1 Mg Tablet) 4 mg PO BEDTIME [facility] Last Admin: 03/14/23 21:37 Dose: 4 mg Documented By: KAYLA Enoxaparin Sodium (Enoxaparin Sodium 40 Mg/0.4 Ml Syringe) 40 mg SUBCUT Q24H [facility] Last Admin: 03/14/23 21:37 Dose: 40 mg Documented By: KAYLA Folic Acid (Folic Acid 1 Mg Tablet) 1 mg PO DAILY [facility] Last Admin: 03/15/23 08:07 Dose: 1 mg Documented By: TA Lamotrigine (Lamotrigine 100 Mg Tablet) 200 mg PO DAILY [facility] Last Admin: 03/15/23 08:06 Dose: 200 mg Documented By: TA Melatonin (Melatonin 3 Mg Tablet) 6 mg PO BEDTIME PRN PRN Reason: Insomnia Last Admin: 03/14/23 21:37 Dose: 6 mg Documented By: KAYLA Non-Formulary Medication ( Duloxetine Dr 60mg Caps) 2 each PO DAILY [facility] Last Admin: 03/15/23 08:06 Dose: 2 each Documented By: TA Ondansetron HCl (Ondansetron Hcl 4 Mg/2 Ml Vial) 4 mg IVPUSH Q8H PRN PRN Reason: Nausea and Vomiting Last Admin: 03/13/23 21:49 Dose: 4 mg Documented By: ROXANNE Sodium Chloride (0.9 % Sodium Chloride Flush 3 Ml Syringe) 3 ml IVFLUSH QSHIFT [facility] Last Admin: 03/15/23 08:04 Dose: 3 ml Documented By: TA Thiamine HCl (Thiamine Hcl 100 Mg Tablet) 100 mg PO DAILY [facility] Last Admin: 03/15/23 08:06 Dose: 100 mg Documented By: TA Labs 03/15/23 05:55 03/15/23 05:55 Labs: Laboratory Results - last 24 hr 03/14/23 03/15/23 17:55 05:55 MCV 90.6 89.9 MCH 30.5 30.3 MCHC 33.7 33.7 RDW 13.6 13.3 Plt Count 265 269 MPV 9.4 9.0 L Immature Gran % (Auto) 0.3 Neut % (Auto) 51.2 Lymph % (Auto) 37.9 [place] % (Auto) 8.0 Eos % (Auto) 1.9 Baso % (Auto) 0.7 Lymph # (Auto) 4.1 [place] # (Auto) 0.9 Eos # (Auto) 0.2 Baso # (Auto) 0.1 Abs Immat Gran (auto) 0.03 Absolute Neuts (auto) 5.5 Absolute Nucleated RBC 0.000 0.000 Nucleated RBC % (auto) 0.0 0.0 PT 12.5 11.4 INR 1.0 0.9 Anion Gap 13 9 L Estim Creat Clear Calc 56.5 68.2 Estimated GFR 58 > 60 Random Glucose 112 Fasting Glucose 101 H Calcium 8.6 8.9 Total Bilirubin 0.2 0.4 Direct Bilirubin 0.2 0.1 AST 18 19 ALT 11 11 Alkaline Phosphatase 56 52 Total Protein 6.2 L 6.1 L Albumin 3.8 3.6 Lipase 19 Acetaminophen < 17 < 17 Ethyl Alcohol < 10 Assessment and Plan (1) Acetaminophen toxicity: Status: Acute (2) Suicide attempt by drug overdose: Status: Acute (3) Alcohol use disorder, moderate, dependence: Status: Acute (4) Major depressive disorder, recurrent severe without psychotic features: Status: Acute Plan 47F PMH mood disorder, etoh dependence, PTSD, presented with intentionaly tylenol overdose acetominophen toxicity Finished NAC stable LFTs depression with suicide attempt continue 1:1 Pending clearance prior to dc to a facility psyc consult today Care team working on placement eoth dependence no active withdrawal, scoring low on ciwa Hypokalemia, acute replacement given follow BMP dvt prophyalxis - lovenox full code reason for continued hospitalization: pending safe discharge plan Time Spent With Patient Time: Total time managing care of this patient today ____ minutes. Quality Stroke Does the patient have a stroke diagnosis?: No VTE Prior VTE?: No VTE Risk Level:: Medical - moderate - high VTE Device Contraindication: Treatment Not Indicated VTE Drug Contraindication: N/A - Med Ordered
--- NOTE | 2023-03-15 15:29 | PM.DS ---
DS: Providers Provider Date of admission: 03/13/23 20:20 Primary care physician: Angel Hernandez MD Consults: 03/13/23 20:29 Consult to Care Team Routine Comment: Reason for consultation: suicide attempt 03/13/23 20:32 Addiction Medicine Routine Consulting Provider: Addiction Covering Reason for consultation: alcohol use disorder 03/15/23 07:42 Consult to Care Team Stat Comment: Reason for consultation: Medically clear, placement evaluation DS: Diagnosis Discharge Diagnosis (1) Acetaminophen toxicity: Status: Acute (2) Suicide attempt by drug overdose: Status: Acute (3) Alcohol use disorder, moderate, dependence: Status: Acute (4) Major depressive disorder, recurrent severe without psychotic features: Status: Acute DS: Summary Hospital Course Hospital Course: Admission note HPI This is a 47-year-old female with pertinent history of mood disorder, alcohol use disorder, PTSD, suicidal times in the past who was brought to the emergency department after intentional overdose. Patient states she went to [facility] and took an entire bottle of NyQuil, Robitussin and about 30 tablets of ibuprofen. Patient states that she feels low as she lost her mother. She has difficulty managing her work. Also states that she tried hanging herself with a rope but did not go through as it did not feel right. Does state she has difficulty managing her alcohol use disorder and consumes fireball whiskey. No history of alcohol withdrawals or alcohol withdrawal seizures. She denies fever, chills, chest discomfort, palpitations, shortness of breath, abdominal pain, changes in urinary or bowel habits. Does endorse nausea In the emergency department, acetaminophen level found to be elevated and patient was initiated on N-acetylcysteine. Hospital course Admitted for Acetaminophen toxicity which was treated with NAC protocol and close monitoring of LFT with no injuries documented. that was secondary to depression with suicide attempt as she was kept on 1:1 sitter. She was monitored for eoth dependence by [facility] with non to low scores. did not require alcohol withdrawal protocol. she will be admitted toinpatient psychiatry Time Spent with Patient Time attestation: Total time managing care of this patient today ____ minutes. Physical Exam Vital Signs: Vital Signs: Last Vital Signs Temp 98.0 F 03/15/23 10:57 Pulse 81 03/15/23 10:57 Resp 20 03/15/23 10:57 BP 167/88 H 03/15/23 10:57 Pulse Ox 100 03/15/23 10:57 O2 Del Method Room Air 03/15/23 10:57 BMI result Body Mass Index 25.0 Const: Other: Constitutional : Awake, interactive, not in distress Neck : Normal inspection, Supple Cardiovascular : RRR, no JVP, no lower extremity edema Respiratory : good bilateral air entry, no crackles, wheezes or rhonchi Gastrointestinal: soft, lax, Normal bowel sounds, Non tender Skin : Warm, Dry Neurological : Alert & oriented x3, No focal deficit DS: Data Data Completed and Pending Labs on day of discharge: Laboratory Results - last 24 hr 03/14/23 03/15/23 17:55 05:55 WBC 10.7 9.0 RBC 4.13 L 4.36 Hgb 12.6 13.2 Hct 37.4 39.2 MCV 90.6 89.9 MCH 30.5 30.3 MCHC 33.7 33.7 RDW 13.6 13.3 Plt Count 265 269 MPV 9.4 9.0 L Immature Gran % (Auto) 0.3 Neut % (Auto) 51.2 Lymph % (Auto) 37.9 [place] % (Auto) 8.0 Eos % (Auto) 1.9 Baso % (Auto) 0.7 Lymph # (Auto) 4.1 [place] # (Auto) 0.9 Eos # (Auto) 0.2 Baso # (Auto) 0.1 Abs Immat Gran (auto) 0.03 Absolute Neuts (auto) 5.5 Absolute Nucleated RBC 0.000 0.000 Nucleated RBC % (auto) 0.0 0.0 PT 12.5 11.4 INR 1.0 0.9 Sodium 141 143 Potassium 3.0 L 3.2 L Chloride 106 108 Carbon Dioxide 25 29 Anion Gap 13 9 L BUN 9 7 L Creatinine 1.01 0.83 Estim Creat Clear Calc 56.5 68.2 Estimated GFR 58 > 60 Random Glucose 112 Fasting Glucose 101 H Calcium 8.6 8.9 Total Bilirubin 0.2 0.4 Direct Bilirubin 0.2 0.1 AST 18 19 ALT 11 11 Alkaline Phosphatase 56 52 Total Protein 6.2 L 6.1 L Albumin 3.8 3.6 Lipase 19 Acetaminophen < 17 < 17 Ethyl Alcohol < 10 Imaging Chest x-ray: Radiologist's impression: ITS Impressions Neck CTA 03/13/23 17:18 IMPRESSION: No evidence of traumatic injury to the major neck arteries. Discharge Plan Discharge Anticipated Discharge Date/Time: 03/15/23 16:35 Patient Disposition: Xfer Other Discharge Diagnosis: Drug overdose: Suicidal attempt Referrals: Angel Hernandez MD [Primary Care Provider] - 1 Week Discharge Medications: New thiamine mononitrate (vit B1) 100 mg Tablet 100 mg PO DAILY Qty: 30 0RF folic acid 1 mg Tablet 1 mg PO DAILY Qty: 30 0RF Continued duloxetine 60 mg capsule,delayed release(DR/EC) 120 mg PO DAILY 30 Days Qty: 60 0RF Emgality Pen 120 mg/mL pen injector 120 mg subcut QMONTH Patient Comments: Last dose was end january per patient lamotrigine 200 mg Tablet 200 mg PO DAILY Ubrelvy 100 mg Tablet 100 mg DAILY PRN (Reason: Migraine Headache) clonazepam 2 mg Tablet 4 mg PO BEDTIME Qty: 20 0RF Rx Instructions: administer 30 minutes before bedtime Discontinued clonazepam 2 mg tablet 2 mg PO DAILY@1700 Discharge Orders: Discharge Order (Routine); Ordered 03/17/23 Ordered By: Grant Vasques Diet: Advance to usual diet Activity on Discharge: As tolerated Stand Alone Forms: Patient Portal Discharge page Care Plan Goals: Read below Health Concerns: Read below Plan of Treatment: Read below Assessment: Treated for suicidal attempt with drug overdose. responded well with no documented damage to your liver. Continue current medications Follow with psychiatry team for further adjustments of medications Discharge Date/Time: 03/17/23 19:42
--- NOTE | 2023-03-15 17:04 | MHC.RECOVRN ---
This junior copywriter met with patient, patient admitted for overdose/SI. Pt was awake, laying in bed, 1:1 sitter. This junior copywriter had received report from Care Team, [facility], pt had made calls from cell to [facility] to coordinate care. T/W checked with pt, pt reports wants to go to [facility], reviewed that Care Team was working on appropriate plan of care for patient. Patient verbalized understanding.
--- NOTE | 2023-03-15 17:09 | MHC.CARE ---
Patient has been evaluated by the CARE Team, disposition determined to be inpatient substance use treatment. Referrals in process. Provider, Dr. Hannah updated.
[2023-03-15] MEDS: Melatonin 3 MG TABLET 6 MG PO (20:06)
[2023-03-15] MEDS: clonazePAM 1 MG TABLET 4 MG PO (20:06)
[2023-03-15] MEDS: Enoxaparin Sodium 40 MG/0.4 ML SYRINGE SUBCUT (21:32)
[2023-03-16 02:44] VITALS: BP 103/54; PULSE 69; RESP 20; TEMP 36.1; O2SAT 99
[2023-03-16] MEDS: traMADoL HCL 50 MG TABLET 25 MG PO (03:23)
[2023-03-16 08:00] VITALS: BP 121/74; PULSE 72; RESP 15; TEMP 36.2; O2SAT 95
[2023-03-16] MEDS: lamoTRIgine 100 MG TABLET 200 MG PO (08:36)
[2023-03-16] MEDS: 0.9 % Sodium Chloride Flush 3 ML SYRINGE IVFLUSH (08:36)
[2023-03-16] MEDS: Folic Acid 1 MG TABLET PO (08:36)
[2023-03-16] MEDS: Thiamine HCL 100 MG TABLET PO (08:36)
[2023-03-16] MEDS: Butalb/Acetamin/Caff 50/325/40 TABLET 1 TAB PO (09:44)
[2023-03-16] MEDS: Throat Lozenge, Medicated LOZENGE 1 LOZENGE MUCOUS MEM (09:45)
[2023-03-16 10:48] VITALS: BP 158/89; PULSE 75; RESP 20; TEMP 36.7; O2SAT 100
--- NOTE | 2023-03-16 12:27 | P.PNIM_ITS ---
Subjective Subjective Date of Service: 03/16/23 Interval History: Feels better less anxious still depressed but no suicidal threats Sitter in the room Physical Exam 2 Vital Signs: Vital Signs: Last Vital Signs Temp 98.1 F 03/16/23 10:48 Pulse 75 03/16/23 10:48 Resp 20 03/16/23 10:48 BP 158/89 H 03/16/23 10:48 Pulse Ox 100 03/16/23 10:48 O2 Del Method Room Air 03/16/23 10:48 BMI result Body Mass Index 25.0 Const: Other: Constitutional : Awake, interactive, not in distress Neck : Normal inspection, Supple Cardiovascular : RRR, no JVP, no lower extremity edema Respiratory : good bilateral air entry, no crackles, wheezes or rhonchi Gastrointestinal: soft, lax, Normal bowel sounds, Non tender Skin : Warm, Dry Neurological : Alert & oriented x3, No focal deficit Objective Data Active Medications Acetaminophen/Butalbital/Caffeine (Butalb/Acetamin/Caff 50/325/40 Tablet) 1 tab PO Q4H PRN PRN Reason: Headache Last Admin: 03/16/23 09:44 Dose: 1 tab Documented By: TA Benzocaine (Throat Lozenge, Medicated Lozenge) 1 lozenge MUCOUS MEM Q2H PRN PRN Reason: Sore Throat Last Admin: 03/16/23 09:45 Dose: 1 lozenge Documented By: TA Clonazepam (Clonazepam 1 Mg Tablet) 4 mg PO BEDTIME [facility] Last Admin: 03/15/23 20:06 Dose: 4 mg Documented By: KAYLA Enoxaparin Sodium (Enoxaparin Sodium 40 Mg/0.4 Ml Syringe) 40 mg SUBCUT Q24H [facility] Last Admin: 03/15/23 21:32 Dose: 40 mg Documented By: KAYLA Folic Acid (Folic Acid 1 Mg Tablet) 1 mg PO DAILY [facility] Last Admin: 03/16/23 08:36 Dose: 1 mg Documented By: TA Lamotrigine (Lamotrigine 100 Mg Tablet) 200 mg PO DAILY [facility] Last Admin: 03/16/23 08:36 Dose: 200 mg Documented By: TA Melatonin (Melatonin 3 Mg Tablet) 6 mg PO BEDTIME PRN PRN Reason: Insomnia Last Admin: 03/15/23 20:06 Dose: 6 mg Documented By: KAYLA Non-Formulary Medication ( Duloxetine Dr 60mg Caps) 2 each PO DAILY [facility] Last Admin: 03/16/23 08:37 Dose: 2 each Documented By: TA Ondansetron HCl (Ondansetron Hcl 4 Mg/2 Ml Vial) 4 mg IVPUSH Q8H PRN PRN Reason: Nausea and Vomiting Last Admin: 03/13/23 21:49 Dose: 4 mg Documented By: ROXANNE Sodium Chloride (0.9 % Sodium Chloride Flush 3 Ml Syringe) 3 ml IVFLUSH QSHIFT [facility] Last Admin: 03/16/23 08:36 Dose: 3 ml Documented By: TA Thiamine HCl (Thiamine Hcl 100 Mg Tablet) 100 mg PO DAILY [facility] Last Admin: 03/16/23 08:36 Dose: 100 mg Documented By: TA Labs 03/15/23 05:55 03/15/23 05:55 Assessment and Plan (1) Acetaminophen toxicity: Status: Acute (2) Suicide attempt by drug overdose: Status: Acute (3) Alcohol use disorder, moderate, dependence: Status: Acute (4) Major depressive disorder, recurrent severe without psychotic features: Status: Acute Plan 47F PMH mood disorder, etoh dependence, PTSD, presented with intentionaly tylenol overdose acetominophen toxicity Finished NAC stable LFTs depression with suicide attempt continue 1:1 Pending clearance prior to dc to a facility psyc consult today Care team working on placement eoth dependence no active withdrawal, scoring low on ciwa Hypokalemia, acute replacement given follow BMP dvt prophyalxis - lovenox full code reason for continued hospitalization: pending safe discharge plan Time Spent With Patient Time: Total time managing care of this patient today ____ minutes. Quality Stroke Does the patient have a stroke diagnosis?: No VTE Prior VTE?: No VTE Risk Level:: Medical - moderate - high VTE Device Contraindication: Treatment Not Indicated VTE Drug Contraindication: N/A - Med Ordered
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
--- NOTE | 2023-03-16 14:30 | PC.NURSE ---
Psychiatric provider at bedside for consultation at this time.
[2023-03-16 15:30] VITALS: BP 140/81; PULSE 73; RESP 14; TEMP 36.3; O2SAT 100
--- NOTE | 2023-03-16 17:21 | MHC.CARE ---
Ongoing communication with Shaun throughout the day, provided psychiatry consult via fax which was reviewed and per Lani at 4:30pm patient referral denied again due to not having psychiatrist on site to review. They will represent in the morning and get back to us kelsey, may ask for MD-MD conversation or be willing to escalate to the medical communication specialist of the facility. Updated patient that per psychiatry, she is clear to go to a residential program but not home. If the admission to [facility] is not possible inpatient level of care may be considered, she was upset and tearful. Children at bedside to offer support and 1:[address]
--- NOTE | 2023-03-16 17:35 | PC.NURSE ---
Patient anxious after psych clinician told patient her dispo- inpatient psych- at this time. Clonazepam 2mg PO given early now. Clonazepam 2mg PO to be given at 2100. Patient agreeable to plan.
[2023-03-16] MEDS: clonazePAM 1 MG TABLET 2 MG PO ×2 (17:48→20:10)
[2023-03-16 19:02] VITALS: BP 133/74; PULSE 77; RESP 14; TEMP 36; O2SAT 99
[2023-03-16] MEDS: Melatonin 3 MG TABLET 6 MG PO (20:10)
[2023-03-16] MEDS: Enoxaparin Sodium 40 MG/0.4 ML SYRINGE SUBCUT (22:07)
[2023-03-17] VITALS: BP 97/51; PULSE 69; RESP 18; TEMP 36.3; O2SAT 97
[2023-03-17] MEDS: Butalb/Acetamin/Caff 50/325/40 TABLET 1 TAB PO ×2 (00:19→16:44)
[2023-03-17 06:58] VITALS: BP 123/74; PULSE 67; RESP 20; TEMP 36.6; O2SAT 99
[2023-03-17 07:13] LABS: Anion Gap 11 (12-20); Blood Urea Nitrogen 15 mg/dL (9-16); Carbon Dioxide 28 mmol/L (22-29); Chloride 106 mmol/L (96-108); Estimated Glomerular Filt Rate > 60; Glucose Random 113 mg/dL (60-115); Potassium 3.6 mmol/L (3.3-5.1); Sodium 141 mmol/L (135-145)
[2023-03-17] MEDS: Thiamine HCL 100 MG TABLET PO (08:37)
[2023-03-17] MEDS: Folic Acid 1 MG TABLET PO (08:37)
[2023-03-17] MEDS: lamoTRIgine 100 MG TABLET 200 MG PO (08:37)
[2023-03-17] MEDS: 0.9 % Sodium Chloride Flush 3 ML SYRINGE IVFLUSH (08:37)
--- NOTE | 2023-03-17 08:37 | P.PNIM_ITS ---
Subjective Subjective Date of Service: 03/17/23 Interval History: Feels better less anxious still depressed but no suicidal threats Sitter in the room Physical Exam 2 Vital Signs: Vital Signs: Last Vital Signs Temp 97.9 F 03/17/23 06:58 Pulse 67 03/17/23 06:58 Resp 20 03/17/23 06:58 BP 123/74 03/17/23 06:58 Pulse Ox 99 03/17/23 06:58 O2 Del Method Room Air 03/17/23 06:58 BMI result Body Mass Index 25.0 Const: Other: Constitutional : Awake, interactive, not in distress Neck : Normal inspection, Supple Cardiovascular : RRR, no JVP, no lower extremity edema Respiratory : good bilateral air entry, no crackles, wheezes or rhonchi Gastrointestinal: soft, lax, Normal bowel sounds, Non tender Skin : Warm, Dry Neurological : Alert & oriented x3, No focal deficit Objective Data Active Medications Acetaminophen/Butalbital/Caffeine (Butalb/Acetamin/Caff 50/325/40 Tablet) 1 tab PO Q4H PRN PRN Reason: Headache Last Admin: 03/17/23 00:19 Dose: 1 tab Documented By: KAYLA Benzocaine (Throat Lozenge, Medicated Lozenge) 1 lozenge MUCOUS MEM Q2H PRN PRN Reason: Sore Throat Last Admin: 03/16/23 09:45 Dose: 1 lozenge Documented By: TA Clonazepam (Clonazepam 1 Mg Tablet) 2 mg PO BEDTIME [facility] Last Admin: 03/16/23 20:10 Dose: 2 mg Documented By: KAYLA Enoxaparin Sodium (Enoxaparin Sodium 40 Mg/0.4 Ml Syringe) 40 mg SUBCUT Q24H [facility] Last Admin: 03/16/23 22:07 Dose: 40 mg Documented By: KAYLA Folic Acid (Folic Acid 1 Mg Tablet) 1 mg PO DAILY [facility] Last Admin: 03/16/23 08:36 Dose: 1 mg Documented By: TA Lamotrigine (Lamotrigine 100 Mg Tablet) 200 mg PO DAILY [facility] Last Admin: 03/16/23 08:36 Dose: 200 mg Documented By: TA Melatonin (Melatonin 3 Mg Tablet) 6 mg PO BEDTIME PRN PRN Reason: Insomnia Last Admin: 03/16/23 20:10 Dose: 6 mg Documented By: KAYLA Non-Formulary Medication ( Duloxetine Dr 60mg Caps) 2 each PO DAILY [facility] Last Admin: 03/16/23 08:37 Dose: 2 each Documented By: TA Ondansetron HCl (Ondansetron Hcl 4 Mg/2 Ml Vial) 4 mg IVPUSH Q8H PRN PRN Reason: Nausea and Vomiting Last Admin: 03/13/23 21:49 Dose: 4 mg Documented By: ROXANNE Sodium Chloride (0.9 % Sodium Chloride Flush 3 Ml Syringe) 3 ml IVFLUSH QSHIFT [facility] Last Admin: 03/17/23 00:13 Dose: Not Given Documented By: KAYLA Non-Admin Reason: No Access Thiamine HCl (Thiamine Hcl 100 Mg Tablet) 100 mg PO DAILY [facility] Last Admin: 03/16/23 08:36 Dose: 100 mg Documented By: TA Labs 03/15/23 05:55 03/17/23 06:21 Labs: Laboratory Results - last 24 hr 03/17/23 06:21 Anion Gap 11 L Estim Creat Clear Calc 69.0 Estimated GFR > 60 Random Glucose 113 Calcium 9.0 Assessment and Plan (1) Acetaminophen toxicity: Status: Acute (2) Suicide attempt by drug overdose: Status: Acute (3) Alcohol use disorder, moderate, dependence: Status: Acute (4) Major depressive disorder, recurrent severe without psychotic features: Status: Acute Plan 47F PMH mood disorder, etoh dependence, PTSD, presented with intentionaly tylenol overdose acetominophen toxicity Finished NAC stable LFTs depression with suicide attempt continue 1:1 Care team working on placement eoth dependence no active withdrawal, scoring low on ciwa Hypokalemia, acute replacement given follow BMP dvt prophyalxis - lovenox full code reason for continued hospitalization: pending safe discharge plan Time Spent With Patient Time: Total time managing care of this patient today ____ minutes. Quality Stroke Does the patient have a stroke diagnosis?: No VTE Prior VTE?: No VTE Risk Level:: Medical - moderate - high VTE Device Contraindication: Treatment Not Indicated VTE Drug Contraindication: N/A - Med Ordered
--- NOTE | 2023-03-17 10:58 | MHC.CARE ---
Spoke to Sherif ([phone]) from [facility]), they do not have a psychiatric provider to review clinical information until tomorrow therefore they cannot accept her to the facility. They suggested, [facility], as the next closest residential substance use treatment program.
[2023-03-17 11:13] VITALS: BP 154/84; PULSE 90; RESP 20; TEMP 36.1; O2SAT 100
[2023-03-17 15:13] VITALS: BP 142/86; PULSE 86; RESP 16; TEMP 36.2; O2SAT 100
--- NOTE | 2023-03-17 15:18 | P.DS_ITS ---
DS: Providers Provider Date of Service: 03/17/23 Date of admission: 03/13/23 20:20 Primary care physician: Angel Hernandez MD Consults: 03/13/23 20:29 Consult to Care Team Routine Comment: Reason for consultation: suicide attempt 03/13/23 20:32 Addiction Medicine Routine Consulting Provider: Addiction Covering Reason for consultation: alcohol use disorder 03/15/23 07:42 Consult to Care Team Stat Comment: Reason for consultation: Medically clear, placement evaluation 03/16/23 07:34 Consult to Psychiatry Routine Consulting Provider: Psych Covering Reason for consultation: Depression w suicidal attempt for eval and rec DS: Diagnosis Discharge Diagnosis (1) Acetaminophen toxicity: Status: Acute (2) Suicide attempt by drug overdose: Status: Acute (3) Alcohol use disorder, moderate, dependence: Status: Acute (4) Major depressive disorder, recurrent severe without psychotic features: Status: Acute DS: Summary Hospital Course Hospital Course: Admission note HPI This is a 47-year-old female with pertinent history of mood disorder, alcohol use disorder, PTSD, suicidal times in the past who was brought to the emergency department after intentional overdose. Patient states she went to [facility] and took an entire bottle of NyQuil, Robitussin and about 30 tablets of ibuprofen. Patient states that she feels low as she lost her mother. She has difficulty managing her work. Also states that she tried hanging herself with a rope but did not go through as it did not feel right. Does state she has difficulty managing her alcohol use disorder and consumes fireball whiskey. No history of alcohol withdrawals or alcohol withdrawal seizures. She denies fever, chills, chest discomfort, palpitations, shortness of breath, abdominal pain, changes in urinary or bowel habits. Does endorse nausea In the emergency department, acetaminophen level found to be elevated and patient was initiated on N-acetylcysteine. Hospital course Admitted for Acetaminophen toxicity which was treated with NAC protocol and close monitoring of LFT with no injuries documented. that was secondary to depression with suicide attempt as she was kept on 1:1 sitter. She was monitored for eoth dependence by [facility] with non to low scores. did not require alcohol withdrawal protocol. she will be admitted toinpatient psychiatry Time Spent with Patient Time attestation: Total time managing care of this patient today ____ minutes. Discharge coordination time: Greater than 30 minutes Quality: Safe Use of Opioids Does Pt have an Active Cancer Diagnosis on the Problem List?: No Quality: Stroke Does the patient have a stroke diagnosis?: No Physical Exam Vital Signs: Vital Signs: Last Vital Signs Temp 97.1 F 03/17/23 15:13 Pulse 86 03/17/23 15:13 Resp 16 03/17/23 15:13 BP 142/86 H 03/17/23 15:13 Pulse Ox 100 03/17/23 15:13 O2 Del Method Room Air 03/17/23 15:13 BMI result Body Mass Index 25.0 Const: Other: Constitutional : Awake, interactive, not in distress Neck : Normal inspection, Supple Cardiovascular : RRR, no JVP, no lower extremity edema Respiratory : good bilateral air entry, no crackles, wheezes or rhonchi Gastrointestinal: soft, lax, Normal bowel sounds, Non tender Skin : Warm, Dry Neurological : Alert & oriented x3, No focal deficit DS: Data Data Completed and Pending Labs on day of discharge: Laboratory Results - last 24 hr 03/17/23 06:21 Sodium 141 Potassium 3.6 Chloride 106 Carbon Dioxide 28 Anion Gap 11 L BUN 15 Creatinine 0.82 Estim Creat Clear Calc 69.0 Estimated GFR > 60 Random Glucose 113 Calcium 9.0 Discharge Plan Discharge Anticipated Discharge Date/Time: 03/15/23 16:35 Patient Disposition: Xfer Other Discharge Diagnosis: Drug overdose: Suicidal attempt Referrals: Angel Hernandez MD [Primary Care Provider] - 1 Week Discharge Medications: New thiamine mononitrate (vit B1) 100 mg Tablet 100 mg PO DAILY Qty: 30 0RF folic acid 1 mg Tablet 1 mg PO DAILY Qty: 30 0RF Continued duloxetine 60 mg capsule,delayed release(DR/EC) 120 mg PO DAILY 30 Days Qty: 60 0RF Emgality Pen 120 mg/mL pen injector 120 mg subcut QMONTH Patient Comments: Last dose was end january per patient lamotrigine 200 mg Tablet 200 mg PO DAILY Ubrelvy 100 mg Tablet 100 mg DAILY PRN (Reason: Migraine Headache) clonazepam 2 mg Tablet 4 mg PO BEDTIME Qty: 20 0RF Rx Instructions: administer 30 minutes before bedtime clonazepam 2 mg tablet 2 mg PO DAILY@1700 Qty: 10 0RF Discharge Orders: Discharge Order (Routine); Ordered 03/17/23 Ordered By: Grant Vasques Diet: Advance to usual diet Activity on Discharge: As tolerated Stand Alone Forms: Patient Portal Discharge page Care Plan Goals: Read below Health Concerns: Read below Plan of Treatment: Read below Assessment: Treated for suicidal attempt with drug overdose. responded well with no documented damage to your liver. Continue current medications Follow with psychiatry team for further adjustments of medications Discharge Date/Time: 03/17/23 19:42
[2023-03-17] MEDS: Throat Lozenge, Medicated LOZENGE 1 LOZENGE MUCOUS MEM (16:48)
== END 2023-03-17 19:42 | disposition other institution (70) | DRG 918 ==
LOC: HO.ED 20:22 → HO.EDOVER 20:33 → HO.IMC 03-14 18:52
PROVIDERS: Physician Assistant Medical; Student in an Organized Health Care Education/Training Program; Admitting Provider Student in an Organized Health Care Education/Training Program; Emergency Provider Student in an Organized Health Care Education/Training Program; PCP Internal Medicine; Visit Provider Internal Medicine
DX: T39.1X2A Poisoning by 4-Aminophenol derivatives, intentional self-harm, initial encounter (principal); F33.2 Major depressive disorder, recurrent severe without psychotic features; F43.12 Post-traumatic stress disorder, chronic; F10.20 Alcohol dependence, uncomplicated; Y90.5 Blood alcohol level of 100-119 mg/100 ml; Z20.822 Contact with and (suspected) exposure to COVID-19; Z91.51 Personal history of suicidal behavior; Z79.899 Other long term (current) drug therapy
CPT/HCPCS: 0241U; 36415; 70498; 80048; 80053; 80076; 80143; 80179; 80307; 82248; 83690; 83735; 85025; 85027; 85610; 87651; 93005; 99285; J0132; J1650; J2405; J3411; Q9967; S9485

== ENCOUNTER → 2023-03-13 20:20 | Outpatient (BNV) | payer OTHER, SELFPAY | PROVIDERS: Admitting Provider Student in an Organized Health Care Education/Training Program; Emergency Provider Student in an Organized Health Care Education/Training Program; PCP Internal Medicine; Visit Provider Student in an Organized Health Care Education/Training Program | DX: T39.1X1A Poisoning by 4-Aminophenol derivatives, accidental (unintentional), initial encounter (principal); T50.902A Poisoning by unspecified drugs, medicaments and biological substances, intentional self-harm, initial encounter; F10.20 Alcohol dependence, uncomplicated; F33.2 Major depressive disorder, recurrent severe without psychotic features | CPT/HCPCS: 99222; 99232; 99239 ==

== ENCOUNTER 2023-03-17 20:27 | Inpatient (IN) | payer OTHER, SELFPAY ==
[2023-03-17] MEDS: clonazePAM 1 MG TABLET 2 MG PO (21:02)
[2023-03-17] MEDS: Melatonin 3 MG TABLET 6 MG PO (21:03)
--- NOTE | 2023-03-17 23:45 | PC.ADMIT ---
Patient is a 47 year old Nauruan speaking female admitted as a CV admission to from [facility] at 195 and placed on 15 minute safety checks. Patient was admitted to [facility] s/p an overdose of OTC medications and alcohol after she had tried to hang herself. Patient was tearful on admission and said she did not feel that she needed to be on a psychiatric unit and she knows that she is experiencing delayed grief. Patient said that her mother in September 2022 and due to their estranged relationship she was just starting to experience the grief. She also said she has been dealing with her mother's estate and is almost finished with it. Patient said she was grateful she did not from her overdose and is glad to be alive. She did express a lot of concern about being on and having a roommate. She was minimally engaged during the admission process and made a point of saying I know a lot and I'm not like a lot of these other patients. Patient signed legals but was not that interested in offering much information. She said I should be out of here Friday, if not earlier. Patient did not rate her anxiety or her depression. Denied any AH, VH, SI or HI. She took her HS medication and went to bed. She has a history of being inpatient at [facility].
[2023-03-18 08:24] VITALS: BP 158/83; PULSE 73; RESP 16; TEMP 36.6; O2SAT 99
[2023-03-18] MEDS: Folic Acid 1 MG TABLET PO (08:36)
[2023-03-18] MEDS: Thiamine HCL 100 MG TABLET PO (08:36)
[2023-03-18] MEDS: lamoTRIgine 100 MG TABLET 200 MG PO (08:36)
[2023-03-18 09:16] LABS: Alanine Aminotransferase 26 U/L (0-31); Albumin Level 4.2 g/dL (3.5-5.0); Alkaline Phosphatase 54 U/L (39-117); Anion Gap 13 (12-20); Aspartate Amino Transferase 34 U/L (5-31); Bilirubin Total 0.5 mg/dL (0.0-1.0); Blood Urea Nitrogen 15 mg/dL (9-16); Calcium 9.6 mg/dL (8.4-10.2); Carbon Dioxide 28 mmol/L (22-29); Chloride 105 mmol/L (96-108); Cholesterol 154 mg/dL (<200); Estimated Glomerular Filt Rate > 60; Glucose Fasting 100 mg/dL (60-99); HDL Cholesterol 61 mg/dL (>40); LDL Cholesterol Calculated 84 mg/dL (<100); Potassium 4.2 mmol/L (3.3-5.1); Sodium 142 mmol/L (135-145); Total Protein 6.9 g/dL (6.5-8.0); Triglycerides 48 mg/dL (<150)
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
[2023-03-18 18:00] VITALS: BP 143/73; PULSE 72; RESP 16; TEMP 36.4; O2SAT 100
[2023-03-18] MEDS: clonazePAM 1 MG TABLET 3.5 MG PO (20:54)
[2023-03-18] MEDS: Melatonin 3 MG TABLET 6 MG PO (20:58)
[2023-03-19] MEDS: Folic Acid 1 MG TABLET PO (08:25)
[2023-03-19] MEDS: Thiamine HCL 100 MG TABLET PO (08:25)
[2023-03-19] MEDS: lamoTRIgine 100 MG TABLET 200 MG PO (08:25)
[2023-03-19 08:52] VITALS: BP 129/84; PULSE 88; RESP 16; TEMP 36.1; O2SAT 100
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
== END 2023-03-19 14:26 | disposition home or self-care (01) | DRG 885 ==
PROVIDERS: Admitting Provider Psychiatry & Neurology Psychiatry; Visit Provider Psychiatry & Neurology Psychiatry
DX: F33.2 Major depressive disorder, recurrent severe without psychotic features (principal); F43.12 Post-traumatic stress disorder, chronic; F10.20 Alcohol dependence, uncomplicated; F17.290 Nicotine dependence, other tobacco product, uncomplicated; Z71.6 Tobacco abuse counseling; Z79.899 Other long term (current) drug therapy
CPT/HCPCS: 36415; 80053; 80061

== ENCOUNTER → 2023-03-17 20:27 | Outpatient (BNV) | payer OTHER, SELFPAY | PROVIDERS: Admitting Provider Psychiatry & Neurology Psychiatry; Visit Provider Psychiatry & Neurology Psychiatry | DX: F33.2 Major depressive disorder, recurrent severe without psychotic features (principal); F43.12 Post-traumatic stress disorder, chronic; F10.20 Alcohol dependence, uncomplicated | CPT/HCPCS: 90792; 99232; 99238 ==

== ENCOUNTER → 2023-03-26 09:30 | Outpatient (BNV) | payer OTHER, SELFPAY | PROVIDERS: Visit Provider Psychiatry & Neurology Psychiatry | DX: F33.2 Major depressive disorder, recurrent severe without psychotic features (principal) | CPT/HCPCS: 90792; 99213 ==

== ENCOUNTER 2023-04-09 09:00 | Outpatient (RCR) | payer OTHER, SELFPAY ==
[2023-03-25 11:33] VITALS: BP 142/80; PULSE 69; TEMP 36.5
[2023-03-25 11:40] VITALS: BMI 23.0
--- NOTE | 2023-03-25 12:52 | PC.ADMIT ---
Patient is a 47 year old female who was referred to [facility] by inpatient behavioral health unit where she was admitted for increased depression and s/p suicide attempt via overdose and ETOH use. Patient has a history of SA. See integrative assessment for more information. Patient stated she would have never tried to commit suicide if she was not drinking alcohol. Impulsive decision. She stated she does not want to . 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 She took the medications in her car in a suicide attempt and called her right after. She was found in her car intoxicated with an open bottle of Ibuprofen and was taken to the hospital and was medically admitted d/t overdose. She was admitted to the behavioral health inpatient unit afterwards. Reports many stresses including grieving her mother who of alcoholism and having to deal with her estate, reports her brother is an alcoholic who was on a section 35. She also reports her grandfather was an alcoholic. 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 She stated he was visiting her when she was volunteering and he eventually stopped visiting her and she did not realize how much this affected her until he stopped coming to see her. She reports her ETOH use increased in the past 2 months and was drinking 3-4 times a week up to 5-6 nips and drinking 3 small bottles of wine (from a 4 pack). She also stated she is using 20-30 grams of marijuana in the form of gummies every evening and has been using this for the past 4 years. Patient is alert and oriented x4. Calm and cooperative. Presented with depressed mood and anxious affect. Denied SI or thoughts to harm herself. she was given copy of her safety plan and I reviewed the plan with her. Medications reconciled with patient and inpatient d/c medication list. She reports taking medications as prescribed. Nimisha is trying to do things differently this time and is taking her mental health/substance struggles more seriously this time.
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
--- NOTE | 2023-03-28 08:53 | HO.PHP ---
The clients case was reviewed and opened in treatment team
--- NOTE | 2023-04-01 09:40 | HO.PHP ---
Nimisha did not attend today as she has a prior appointment which she states she had informed the clinician at intake
--- NOTE | 2023-04-09 10:25 | HO.PHPPROGNO ---
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 Overall continues to do well. Looking forward to discharge today and feels that she will hopefully continue to implement the skills that she has learned mainly not reacting and minimizing frustration and anger and taking a step back. Euthymic. No med concerns. Has a new therapist appointment pending which she feels positive about. Also feels positive that her psychiatrist who is retiring in June, has facilitated her with the transition to a new prescriber. No meds needed. Mental Status Exam Mental Status Exam Narrative: Pleasant. Engaged. Organized. Euthymic. No evidence of SI HI. No agitation or psychosis. Insight and judgment good Diagnostics Vital Signs (24Hr): BMI result Body Mass Index 23.0 Assessment & Plan Assessment & Plan (1) Major depressive disorder, recurrent severe without psychotic features: Status: Acute Code(s): F33.2 - Major depressive disorder, recurrent severe without psychotic features Plan Stable and doing well and ready for discharge. Follow-up is already in place and no prescriptions needed Reason for contiued partial hosp. stay Substantial Risk for: stable for discharge Certification I certify that partial hospital treatment is medically necessary due to the symptoms and problems resulting from the patient's mental illness and the failure to treat the patient at the partial hospital level of care would likely result in the patient requiring inpatient psychiatric care which could not be prevented at a less intensive level of care. Total time managing care of this patient today __15__ minutes. Discharge Plan Discharge Attending provider: Ariel Patterson Medications: No Action duloxetine 60 mg capsule,delayed release(DR/EC) 120 mg PO DAILY 30 Days Qty: 60 0RF Emgality Pen 120 mg/mL pen injector 120 mg subcut QMONTH Patient Comments: Last dose was end of January per patient lamotrigine 200 mg Tablet 200 mg PO DAILY Ubrelvy 100 mg Tablet 100 mg DAILY PRN (Reason: Migraine Headache) thiamine mononitrate (vit B1) 100 mg Tablet 100 mg PO DAILY Qty: 30 0RF folic acid 1 mg Tablet 1 mg PO DAILY Qty: 30 0RF clonazepam 2 mg Tablet 4 mg PO BEDTIME Qty: 20 0RF Rx Instructions: administer 30 minutes before bedtime Stand Alone Forms: Patient Portal Discharge page Patient Education: Depression (DC), Alcohol Use Disorder (DC) Telehealth Telehealth Telehealth method: video Minutes spent on Phone/Video with Pt.: 10
== END 2023-04-09 23:59 | disposition home or self-care (01) ==
LOC: HO.PHPA 09:00
PROVIDERS: Visit Provider Psychiatry & Neurology Psychiatry
DX: F33.2 Major depressive disorder, recurrent severe without psychotic features (principal)
CPT/HCPCS: 90791; 90853